=== PATIENT | male | born 1975 | race Caucasian/White ===

== ENCOUNTER 2016-07-28 13:05 | Outpatient (CLI) | payer OTHER | END 2016-07-28 13:06 | disposition home or self-care (01) | LOC: CAR 13:05 | PROVIDERS: ATTEND Psychiatry & Neurology Sleep Medicine | DX: G47.33 Obstructive sleep apnea (adult) (pediatric) (principal) | CPT/HCPCS: 95811 ==

== ENCOUNTER 2017-08-09 08:28 | Outpatient (RCR) ==
--- NOTE | 2017-08-09 11:17 | RS.OTEVAL ---
Subjective Date of Note: 08/09/17 Visit #: 1 Date of Evaluation: 08/09/17 Payer Source: MEDICARE Date of Onset/Injury/Change in Status: 07/11/17 Treatment Diagnosis: M75.41 Impingement syndrome Treatment Side (optional): Right *Precautions: Uses a cane, HTN. Prior Level of Function.....Patient was independent with: ADL's, Self Care, Work /Vocation, Caregiving, Ambulation/Mobility, Community Integration/Access History of Condition/Mechanism of Injury: Pt has been using the cane for 4 years since he had to stop working. Pt reports he has been hurting in the RUE shoulder for a few weeks now. Pt is not a good historian. Pt reports extreme pain with Right shoulder abduction. Level of Function: Pt is not able to lift anything. Pt reports pain all over. Pt has difficulty donning his shirt. Pt quite a bit of difficulty with grooming his hair, quite a bit of difficulty opening a jar, difficulty completing laundry. Pt is not able to use tools. Functional Limitations: Sleep, Self Care, Reaching, Lifting, Carrying Current Complaints/Gains: Pain with shoulder abduction. Pt complains of the bone rubbing on his shoulder when he raises his arm in shoulder abduction. Pt is having a hard time sleeping. He is currently not using his c-pap machine. Pt is needing a different anti-inflammatory medication because naproxen hurt his stomach. Pt has difficulty getting out of the bed. Pt has difficulty picking up his arm and anything with weight on it. Medical History Medical History: Hypertension, Dementia Medical History Comments:: Pt has had back surgery, he is on medication for seizures. Pt has impaired STM, Pt has DDD in back, spinal stenosis, fibromyalgia , spot on his brain they are watching. Pt uses a cane to ambulate. Surgical History Comments:: 2 back surgeries. oral surgery with a tooth removed. Diagnostic Testing/Imaging:: x-ray at [facility] Hx Home Medications: Naproxen, Losartan, Keppra, Oxycodone 10, clorazepate, Patient's Goals: To be able to use his arm without pain. Pain Assessment - Pain Description Pain Description: Burning, Tightness, Radiating, Sharp, Acute Pain Location: Right UE shoulder- runs to his hand like a hot poker. Pain Description: fire like a hot poker Current Pain Intensity: 0 Worst Pain Intensity: 9 Other comments regarding pain:: Pt at rest has pain of 0. When he completes AROM then it is 9/10. Functional Outcome Measures UE Functional Index: 77 - G Codes & Severity Modifier G Codes: Currentis CL = 77% impaired. Goal is CI Source of G Code score: Carrying, moving, and handling Observation - Observation Posture: Normal Handedness: Right - Right Shoulder ROM Right Shoulder Flexion: 127 Right Shoulder Extension: 45 Right Shoulder Abduction: 69 Right Shoulder Internal Rotation: 64 Right Shoulder External Rotation: 67 Right Shoulder ROM Limitations: Soft Tissue Tightness, Pain - Left Shoulder Strength Left Shoulder Flexion: 4+ Good + Left Shoulder Extension: 4+ Good + Left Shoulder Abduction: 4+ Good + - Right Shoulder Strength Right Shoulder Flexion: 3- Fair- Right Shoulder Extension: 3- Fair- Right Shoulder Abduction: 3- Fair- Right Shoulder Adduction: 3- Fair- Right Shoulder External Rotation: 3- Fair- Right Shoulder Internal Rotation: 3- Fair- - Special Tests Shoulder Miramontes-Singh Impingement Test: Positive Right Elbow ROM: Bilaterally WFL's Elbow Muscle Strength: Bilaterally WFL's Wrist ROM: Bilaterally WFL's Wrist Muscle Strength: Bilaterally WFL's Palpation Palpation Findings: Tenderness, Trigger Point Sensation Right Upper Extremity: Impaired Left Upper Extremity: Impaired Sensation Description: Pain Modalities - Treatment Modality: Ultrasound Parameters/Method Applied: .4 w/cm2 for 8 minutes to decrease pain and inflammation. Treatment Area: RUE shouler Patient Position: Sitting - Treatment Modality: Electrical Stim Unattended Parameters/Method Applied: hi volt to decrease pain. Treatment Area: Right UE shoulder Patient Position: Sitting Interventions - Exercise/Activities Exercise/Activities/Manual Therapy: Manual therapy to subscapularis, infraspinatus, supraspinatus. Distraction of humerus from the shoulder for 5 seconds to increase the space in the shoulder. HOME EXERCISE PROGRAM: ice to right shoulder, medication for inflammation. - Charges Timed Code Treatment Minutes: 28 Total Treatment Time: 60 Procedures billed for this date of service:: ISAEL Peñaloza x 2 EVALUATION COMPLEXITY LEVEL: HISTORY: Medium, EXAM OF BODY SYSTEMS: Medium, CLINICAL DECISION MAKING: Medium Assessment Assessment: Pt has limited AROM of RUE shoulder and increased pain with AROM of RUE. Pt has limited functional use for self care and for carrying moving and handling. Pt has difficulty sleeping. Pt reminded to use his c-Pap machine. Rehab Potential: Good Problems/Comments: Pt has increased pain with shoulder flexion, abduction, and horizontal abduction. 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 Short Term Goals Goal #1: Pt pain to decrease to 2/10 with AROM of RUE. Goal to be met by: 08/23/17 Goal #2: Pt to increase shoulder abduction to 90 deg. Goal to be met by: 08/23/17 Goal #3: Pt to increase strength of RUE to 4/5. Goal to be met by: 08/23/17 Goal #4: Pt to increase RUE shoulder flexion to 140 deg. Goal to be met by: 10/10/17 Jail Goals Goal #1: Pt pain to decrease to 0-1/10 with AROM of RUE. Goal to be met by: 10/10/17 Goal #2: Pt to increase shoulder abduction to 115 deg. Goal to be met by: 10/10/17 Goal #3: Pt to increase strength of RUE to 4+/5 to increase reaching. Goal to be met by: 10/10/17 Goal #4: Pt to increase RUE shoulder flexion to 155 deg. Goal to be met by: 10/10/17 Plan - Treatment to be provided Procedures: Therapeutic Exercises, Therapeutic Activity, Neuromuscular Rehab, Manual Therapy, Patient Education Modalities: Electrical Stimulation, Ultrasound/Phonophoresis, Cryotherapy - Treatment Plan Frequency: 2 X week Duration: 8 weeks ORDER # VISITS AND/OR THROUGH DATE: 10/10/17 - Treatment Code (1) Muscle weakness (generalized) Code(s): M62.81 - MUSCLE WEAKNESS (GENERALIZED) Comments: M62.81 muscle weakness in RUE (2) Pain in right shoulder Code(s): M25.511 - PAIN IN RIGHT SHOULDER Qualifiers: Chronicity: acute Qualified Code(s): M25.511 - Pain in right shoulder Comments: Pain in right shoulder (3) Stiffness of right shoulder, not elsewhere classified Code(s): M25.611 - STIFFNESS OF RIGHT SHOULDER, NOT ELSEWHERE CLASSIFIED Comments: Stiffness of RUE shoulder (4) Decreased abduction of right shoulder joint Code(s): M25.611 - STIFFNESS OF RIGHT SHOULDER, NOT ELSEWHERE CLASSIFIED Comments: M25.611 Decreased shoulder abduction
== END 2017-08-10 23:59 | disposition short-term general hospital (02) ==
PROVIDERS: ATTEND Orthopaedic Surgery
DX: M75.41 Impingement syndrome of right shoulder (principal)

== ENCOUNTER 2017-08-29 15:00 | Outpatient (RCR) ==
--- NOTE | 2017-08-14 16:41 | RS.OTDNOTE ---
Subjective Date of Note: 08/14/17 Visit #: 3 Date of Evaluation: 08/09/17 Payer Source: MEDICARE Treatment Diagnosis: M75.41 Impingement syndrome *Precautions: Uses a cane, HTN. Current Complaints/Gains: Pain in the posterior deltoid and in the biceps brachii. Pt reported that following distraction of the LUE that his arm was numb for a day and then the tip of the ring digit felt like fire balls were shooting out of his finger. Pain Assessment - Pain Description Pain Description: Burning, Tightness, Aching Pain Location: Right UE shoulder- runs to his hand like a hot poker. Pain Description: fire like a hot poker Current Pain Intensity: 6 Worst Pain Intensity: 9 Other comments regarding pain:: Patient's pain decreased to 0 following treatment. Modalities - Treatment Modality: Ultrasound Parameters/Method Applied: .4 w/cm2 to RUE biceps brachii area to decrease the pain and tightness of the muscle. Treatment Area: RUE biceps brachii Patient Position: Sitting Interventions - Exercise/Activities Exercise/Activities/Manual Therapy: Manual therapy to teres major, teres minor, supraspinatus and anterior deltoid area near biceps brachii. Pt completed RUE shoulder ABD x 5 reps, RUE shoulder extension x 5 reps, and RUE shoulder extension to reach in his pocket x 5 reps. HOME EXERCISE PROGRAM: ice to right shoulder, medication for inflammation. - Charges Timed Code Treatment Minutes: 54 Total Treatment Time: 54 Procedures billed for this date of service:: MT x 2, US, EX Assessment Assessment: Pt had taut muscle in the biceps brachii area and teres major and teres minor. Pt responded well to therapy of MT and US to decrease pain. Problems/Comments: Pain is decreasing. Patient demonstrates compliance with HEP?: Yes Short Term Goals Goal #1: Pt pain to decrease to 2/10 with AROM of RUE. Goal to be met by: 08/23/17 Progress towards goal: Progressing Goal #2: Pt to increase shoulder abduction to 90 deg. Goal to be met by: 08/23/17 Progress towards goal: Progressing Goal #3: Pt to increase strength of RUE to 4/5. Goal to be met by: 08/23/17 Goal #4: Pt to increase RUE shoulder flexion to 140 deg. Goal to be met by: 10/10/17 Penitentiary Goals Goal #1: Pt pain to decrease to 0-1/10 with AROM of RUE. Goal to be met by: 10/10/17 Progress towards goal: Progressing Goal #2: Pt to increase shoulder abduction to 115 deg. Goal to be met by: 10/10/17 Progress towards goal: Progressing Goal #3: Pt to increase strength of RUE to 4+/5 to increase reaching. Goal to be met by: 10/10/17 Progress towards goal: Progressing Goal #4: Pt to increase RUE shoulder flexion to 155 deg. Goal to be met by: 10/10/17 Progress towards goal: Progressing Plan PLAN OF CARE EXPIRES ON:: 10/10/17 ORDER # VISITS AND/OR THROUGH DATE: 10/10/17 PLAN: To decrease pain in RUE shoulder and then strengthen.
--- NOTE | 2017-08-15 08:23 | RS.OTDNOTE ---
Subjective Date of Note: 08/11/17 Visit #: 2 Date of Evaluation: 08/09/17 Payer Source: MEDICARE Treatment Diagnosis: M75.41 Impingement syndrome *Precautions: Uses a cane, HTN. Current Complaints/Gains: Pt with c/o numbness following therapy. States shoulder to fingertips numbess but no tingling. States ROM improvement following last tx session. States he has not been applying CP but agrees to utilize x 3/day for inflammation. Pain Assessment - Pain Description Pain Location: Right UE shoulder- runs to his hand like a hot poker. Pain Description: fire like a hot poker Current Pain Intensity: 3 Worst Pain Intensity: 7 Modalities - Treatment Modality: Electrical Stim Unattended Parameters/Method Applied: Hi-volt to pt tolerance. Cross current x 4 pads. Treatment Area: shoulder - Hot Pack/Cryotherapy Treatment: Cryotherapy Comments:: CP x 20 mins Interventions - Exercise/Activities Exercise/Activities/Manual Therapy: Manual therapy to subscapularis, infraspinatus, supraspinatus. Distraction of humerus from the shoulder for 5 seconds to increase the space in the shoulder. MT performed along with PROM ABD /ADD and flexion/extension. HOME EXERCISE PROGRAM: ice to right shoulder, medication for inflammation. - Other Treatment/Services Treatment Details: AROM WFL following tx - Charges Timed Code Treatment Minutes: 26 Total Treatment Time: 48 Procedures billed for this date of service:: CP ESTIM EX Assessment Patient demonstrates compliance with HEP?: Yes Short Term Goals Goal #1: Pt pain to decrease to 2/10 with AROM of RUE. Goal to be met by: 08/23/17 Progress towards goal: Progressing Goal #2: Pt to increase shoulder abduction to 90 deg. Goal to be met by: 08/23/17 Progress towards goal: Partially Met Goal #3: Pt to increase strength of RUE to 4/5. Goal to be met by: 08/23/17 Progress towards goal: Partially Met Goal #4: Pt to increase RUE shoulder flexion to 140 deg. Goal to be met by: 10/10/17 Progress towards goal: Partially Met Intermediate Goals Goal #1: Pt pain to decrease to 0-1/10 with AROM of RUE. Goal to be met by: 10/10/17 Progress towards goal: Progressing Goal #2: Pt to increase shoulder abduction to 115 deg. Goal to be met by: 10/10/17 Progress towards goal: Progressing Goal #3: Pt to increase strength of RUE to 4+/5 to increase reaching. Goal to be met by: 10/10/17 Progress towards goal: Progressing Goal #4: Pt to increase RUE shoulder flexion to 155 deg. Goal to be met by: 10/10/17 Progress towards goal: Progressing Plan PLAN OF CARE EXPIRES ON:: 10/10/17 ORDER # VISITS AND/OR THROUGH DATE: 10/10/17 PLAN: Cont per POC to max fx strength/ROM with decreased c/o pain.
--- NOTE | 2017-08-18 08:48 | RS.OTDNOTE ---
Subjective Date of Note: 08/16/17 Visit #: 4 Date of Evaluation: 08/09/17 Payer Source: MEDICARE Treatment Diagnosis: M75.41 Impingement syndrome *Precautions: Uses a cane, HTN. Current Complaints/Gains: Pt states less c/o numbness in UE and voices/demo increased AROM with flexion/abduction but pain is limiting shoulder extension. Pain Assessment - Pain Description Pain Description: Burning, Tightness, Aching Pain Location: Right UE shoulder- runs to his hand like a hot poker. Pain Description: fire like a hot poker Modalities - Treatment Modality: Ultrasound Parameters/Method Applied: .04w/cm2 to biceps brachi x 10 mins Patient Position: Sitting - Hot Pack/Cryotherapy Treatment: Cryotherapy (CP X10 mins) Interventions - Exercise/Activities Exercise/Activities/Manual Therapy: Manual therapy to subscapularis, infraspinatus, supraspinatus. MT performed along with PROM ABD/ADD and flexion with limited shoulder extension performed 2* c/o pain HOME EXERCISE PROGRAM: ice to right shoulder, medication for inflammation. - Objective Findings Objective Findings:: AROM increasing - Charges Timed Code Treatment Minutes: 42 Total Treatment Time: 52 Procedures billed for this date of service:: CP US MT Assessment Patient Education: Education of diagnosis, Body/Joint mechanics, Home Exercise Program, Home Safety, Activity Modification, Education of Plan of Care Patient demonstrates compliance with HEP?: Yes Short Term Goals Goal #1: Pt pain to decrease to 2/10 with AROM of RUE. Goal to be met by: 08/23/17 Progress towards goal: Progressing Goal #2: Pt to increase shoulder abduction to 90 deg. Goal to be met by: 08/23/17 Progress towards goal: Partially Met Comments: supine position Goal #3: Pt to increase strength of RUE to 4/5. Goal to be met by: 08/23/17 Progress towards goal: Partially Met Goal #4: Pt to increase RUE shoulder flexion to 140 deg. Goal to be met by: 10/10/17 Progress towards goal: Partially Met Manager Advertising Goals Goal #1: Pt pain to decrease to 0-1/10 with AROM of RUE. Goal to be met by: 10/10/17 Progress towards goal: Progressing Goal #2: Pt to increase shoulder abduction to 115 deg. Goal to be met by: 10/10/17 Progress towards goal: Progressing Goal #3: Pt to increase strength of RUE to 4+/5 to increase reaching. Goal to be met by: 10/10/17 Progress towards goal: Progressing Goal #4: Pt to increase RUE shoulder flexion to 155 deg. Goal to be met by: 10/10/17 Progress towards goal: Progressing Plan PLAN OF CARE EXPIRES ON:: 10/10/17 ORDER # VISITS AND/OR THROUGH DATE: 10/10/17 PLAN: Cont per POC to max fx I, strength, and ROM
--- NOTE | 2017-08-21 15:22 | RS.OTCXNS ---
OT Case Note Date of Scheduled Appointment: 08/21/17 Type: Cancel (Pt sick)
--- NOTE | 2017-08-24 09:01 | RS.OTDNOTE ---
Subjective Date of Note: 08/23/17 Visit #: 5 Date of Evaluation: 08/09/17 Payer Source: MEDICARE Treatment Diagnosis: M75.41 Impingement syndrome *Precautions: Uses a cane, HTN. Current Complaints/Gains: Pt states therapy has been helping with his motion and pain, even stating pain free at times. States he was washing his hands on Monday night when he had a sharp and loud pop in his shoulder. States increased pain and numbness in his ring and middle digit. States he had a MD appointment last night and was told to continue with current therapy. Pain Assessment - Pain Description Pain Description: Burning, Tightness, Aching Pain Location: Right UE shoulder- runs to his hand like a hot poker. Pain Description: fire like a hot poker Current Pain Intensity: 4-5 Worst Pain Intensity: 10 Other comments regarding pain:: Increased pain with all shoulder and elbow movement. Slight increase with wrist ROM. Modalities - Treatment Modality: Ultrasound Parameters/Method Applied: .04w/cm2 x 7 mins each to trapezius and and along deltoids/bicep each Patient Position: Sitting - Hot Pack/Cryotherapy Treatment: Cryotherapy Comments:: CP applied to shoulder with ice massage/MT to bicep/tricep and AC joint Interventions - Exercise/Activities Exercise/Activities/Manual Therapy: Manual therapy to subscapularis, infraspinatus, supraspinatus. MT performed along with PROM ABD/ADD and flexion with limited shoulder extension performed 2* c/o pain. PROM within pain increase limits. HOME EXERCISE PROGRAM: ice to right shoulder, medication for inflammation. - Objective Findings Objective Findings:: Pain increased with PROM and palpation. - Charges Timed Code Treatment Minutes: 48 Total Treatment Time: 50 Procedures billed for this date of service:: MT US CP Assessment Patient Education: Education of diagnosis, Body/Joint mechanics, Home Exercise Program, Home Safety, Activity Modification, Education of Plan of Care Patient demonstrates compliance with HEP?: Yes Short Term Goals Goal #1: Pt pain to decrease to 2/10 with AROM of RUE. Goal to be met by: 08/23/17 Progress towards goal: Regressing Goal #2: Pt to increase shoulder abduction to 90 deg. Goal to be met by: 08/23/17 Progress towards goal: Regressing Goal #3: Pt to increase strength of RUE to 4/5. Goal to be met by: 08/23/17 Progress towards goal: Regressing Goal #4: Pt to increase RUE shoulder flexion to 140 deg. Goal to be met by: 10/10/17 Progress towards goal: Regressing Customer Counter Representative Goals Goal #1: Pt pain to decrease to 0-1/10 with AROM of RUE. Goal to be met by: 10/10/17 Progress towards goal: Regressing Goal #2: Pt to increase shoulder abduction to 115 deg. Goal to be met by: 10/10/17 Progress towards goal: Regressing Goal #3: Pt to increase strength of RUE to 4+/5 to increase reaching. Goal to be met by: 10/10/17 Progress towards goal: Regressing Goal #4: Pt to increase RUE shoulder flexion to 155 deg. Goal to be met by: 10/10/17 Progress towards goal: Regressing Plan PLAN OF CARE EXPIRES ON:: 10/10/17 ORDER # VISITS AND/OR THROUGH DATE: 10/10/17 PLAN: Pt ed to contact MD if pain remains or increases. Pt instructed to apply CP x 3+ times daily and to rest UE. Pt instructed to cont with therapy on Monday if improvement noted.
--- NOTE | 2017-08-28 09:29 | RS.OTDNOTE ---
Subjective Date of Note: 08/25/17 Visit #: 6 Date of Evaluation: 08/09/17 Payer Source: MEDICARE Treatment Diagnosis: M75.41 Impingement syndrome *Precautions: Uses a cane, HTN. Current Complaints/Gains: Pt states his UE felt better upon leaving therapy and it lasted x 1+ day. States decreased c/o numbness this date. Pain Assessment - Pain Description Pain Description: Burning, Tightness, Aching Pain Location: Right UE shoulder- runs to his hand like a hot poker. Pain Description: fire like a hot poker Current Pain Intensity: 2-3 Modalities - Treatment Modality: Ultrasound Parameters/Method Applied: .04/wcm2 x 10 mins Patient Position: Sitting - Hot Pack/Cryotherapy Treatment: Cryotherapy (CP following therapy) Interventions - Exercise/Activities Exercise/Activities/Manual Therapy: Manual therapy to subscapularis, infraspinatus, supraspinatus. MT performed along with PROM ABD/ADD and flexion with limited shoulder extension performed 2* c/o pain. PROM within pain increase limits. HOME EXERCISE PROGRAM: ice to right shoulder, medication for inflammation. - Objective Findings Objective Findings:: Pain increased with PROM and palpation. - Charges Timed Code Treatment Minutes: 49 Total Treatment Time: 49 Procedures billed for this date of service:: CP US EX Assessment Patient Education: Education of diagnosis, Body/Joint mechanics, Home Exercise Program, Home Safety, Activity Modification, Education of Plan of Care Patient demonstrates compliance with HEP?: Yes Short Term Goals Goal #1: Pt pain to decrease to 2/10 with AROM of RUE. Goal to be met by: 08/23/17 Progress towards goal: Progressing Goal #2: Pt to increase shoulder abduction to 90 deg. Goal to be met by: 08/23/17 Progress towards goal: Progressing Goal #3: Pt to increase strength of RUE to 4/5. Goal to be met by: 08/23/17 Progress towards goal: Progressing Goal #4: Pt to increase RUE shoulder flexion to 140 deg. Goal to be met by: 10/10/17 Progress towards goal: Regressing Engagement Engineer Goals Goal #1: Pt pain to decrease to 0-1/10 with AROM of RUE. Goal to be met by: 10/10/17 Progress towards goal: Progressing Goal #2: Pt to increase shoulder abduction to 115 deg. Goal to be met by: 10/10/17 Progress towards goal: Progressing Goal #3: Pt to increase strength of RUE to 4+/5 to increase reaching. Goal to be met by: 10/10/17 Progress towards goal: Progressing Goal #4: Pt to increase RUE shoulder flexion to 155 deg. Goal to be met by: 10/10/17 Progress towards goal: Progressing Plan PLAN OF CARE EXPIRES ON:: 10/10/17 ORDER # VISITS AND/OR THROUGH DATE: 10/10/17 PLAN: Cont per POC
--- NOTE | 2017-08-29 15:15 | RS.OTCXNS ---
OT Case Note Date of Scheduled Appointment: 08/29/17 Type: Cancel (Therapist cx'd pt 2* increased c/o pain/numbness. Pt states he went to walk in clinic 08/28/18 2* high pain and is scheduled for appointment tomorrow 08/30/17 with Todd JORDAN. Pt to call therapy following MD appointment tomorrow.)
--- NOTE | 2017-08-30 09:03 | RS.OTCNOTE ---
OT Case Note Date of Note: 08/30/17 Title: HOLD OT Note: Pt phoned into therapy following MD appointment this date. Pt placed on hold per MD awaiting MRI 2* increased c/o pain following "pop" while at home washing hands last wk.
== END 2017-09-09 23:59 ==
PROVIDERS: ATTEND Orthopaedic Surgery
DX: M75.41 Impingement syndrome of right shoulder (principal)

== ENCOUNTER 2018-04-11 15:00 | Outpatient (RCR) ==
--- NOTE | 2018-03-14 14:15 | RS.OTEVAL ---
Subjective Date of Note: 03/14/18 Visit #: 1 Number of visits approved by Insurance: [id number] Date of Evaluation: 03/14/18 Payer Source: MEDICARE Date of Onset/Injury/Change in Status: 07/11/17 Treatment Diagnosis: M75.111 Incomplete RCT with Rupture of Right Shoulder Treatment Side (optional): Right *Precautions: Uses a cane, HTN. Prior Level of Function.....Patient was independent with: ADL's, Self Care, Work /Vocation, Caregiving, Ambulation/Mobility, Community Integration/Access History of Condition/Mechanism of Injury: Pt reports he had surgery in [place] with Dr. Sandy Doll on February 07, 2018. Pt has been in a sling since surgery and was told to wear the sling until March 21, 2018. Pt has just now started taking the sling off for a shower. Pt has been sleeping in a recliner since the surgery. Dr. Alanis report that patient had an incomplete Rotator cuff tear and a rupture of the Right shoulder. Level of Function: Pt is not able to lift anything. Pt reports 5/10 pain all over right shoulder. Pt has difficulty donning his shirt but is able to independently. Pt is minimal assistance for donning his splint. Functional Limitations: Sleep, Self Care, Reaching, Lifting, Carrying Current Complaints/Gains: Shoulder pain. Pt reports he is told not to hold more than a full spoon with the RUE hand. Medical History Medical History: Hypertension, Dementia Medical History Comments:: Pt has had back surgery, he is on medication for seizures. Pt has impaired STM, Pt has DDD in back, spinal stenosis, fibromyalgia , spot on his brain they are watching. Pt uses a cane to ambulate. Surgical History Comments:: 2 back surgeries. oral surgery with a tooth removed. Right incomplete Rotator cuff repair/ruptured Right shoulder Diagnostic Testing/Imaging:: x-ray at [facility] Hx Home Medications: Naproxen, Losartan, Keppra, Oxycodone 10, clorazepate, Patient's Goals: To be able to use his arm without pain. Pain Assessment - Pain Description Pain Description: Burning, Tightness, Sharp, Acute Pain Location: Right UE shoulder Pain Description: fire like a hot poker Current Pain Intensity: 5 Worst Pain Intensity: 9 Functional Outcome Measures UE Functional Index: 7 - G Codes & Severity Modifier G Codes: Current is CM at 92.5% impaired. Goal is CH Source of G Code score: Carry, moving, and handling objects. Observation - Observation Posture: Forward Head Handedness: Right Additional Comments: Pt had surgery to repair. Wrist ROM: Bilaterally WFL's Wrist Muscle Strength: Left WFL's Palpation Palpation Findings: Tenderness, Muscle Guarding Sensation Right Upper Extremity: Intact/Normal Left Upper Extremity: Intact/Normal Modalities - Hot Pack/Cryotherapy Treatment: Cryotherapy Interventions - Exercise/Activities Exercise/Activities/Manual Therapy: Pt placed in supine and PROM was completed explaining every motion to decrease the anxiety of the patient. Pt tolerated PROM of RUE shoulder in shoulder flexion, abduction, INT. Rot., Ext. Rot., shoulder extension. PROM was completed to the point of pain. Some motions were not full ROM. HOME EXERCISE PROGRAM: ice to right shoulder, medication for inflammation. - Objective Findings Objective Findings:: Pain increased with PROM and palpation. - Charges Timed Code Treatment Minutes: 60 Total Treatment Time: 60 Procedures billed for this date of service:: Evaluation- Medium, EX, CP EVALUATION COMPLEXITY LEVEL: HISTORY: Medium, EXAM OF BODY SYSTEMS: Medium, CLINICAL DECISION MAKING: Medium Assessment Assessment: Pt has limited ROM at this time due to edema and being in a sling following surgery and pain. Patient Education: Education of diagnosis, Education of Plan of Care Rehab Potential: Good Problems/Comments: Pt has pain with motion. Pt has mild edema of the RUE shoulder. Short Term Goals Goal #1: Pt pain to decrease to 2/10 with AROM of RUE. Goal to be met by: 03/28/18 Goal #2: Pt to be independent with Home exercise program. Goal to be met by: 03/28/18 Goal #3: Pt to increase strength of RUE to 3-/5. Goal to be met by: 03/28/18 Goal #4: Pt to increase RUE shoulder flexion to 90 deg. 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 Goal to be met by: 04/27/18 Goal #2: Pt to increase shoulder abduction to 115 deg. Goal to be met by: 04/27/18 Goal #3: Pt to increase strength of RUE to 4+/5 to increase reaching. Goal to be met by: 04/27/18 Goal #4: Pt to increase RUE shoulder flexion to 155 deg. Goal to be met by: 04/27/18 Plan - Treatment to be provided Procedures: Therapeutic Exercises, Therapeutic Activity, Neuromuscular Rehab, Manual Therapy, Patient Education Modalities: Electrical Stimulation, Ultrasound/Phonophoresis, Class IV Laser, Cryotherapy - Treatment Plan Frequency: 2 X week Duration: 6 weeks Dates of [facility] Goals: 04/27/18 Expiration date of current Insurance Approval:: 04/27/18 - Treatment Code (1) Muscle weakness (generalized) Code(s): M62.81 - MUSCLE WEAKNESS (GENERALIZED) Comments: M62.81 Muscle Weakness (2) Pain in right shoulder Code(s): M25.511 - PAIN IN RIGHT SHOULDER Qualifiers: Chronicity: acute Qualified Code(s): M25.511 - Pain in right shoulder Comments: M25.5111 RUE shoulder pain (3) Stiffness of right shoulder, not elsewhere classified Code(s): M25.611 - STIFFNESS OF RIGHT SHOULDER, NOT ELSEWHERE CLASSIFIED Comments: M25.611 Stiffness of RUE shoulder
--- NOTE | 2018-03-19 16:15 | RS.OTDNOTE ---
Subjective Date of Note: 03/15/18 Visit #: 2 Number of visits approved by Insurance: [id number] Date of Evaluation: 03/14/18 Payer Source: MEDICARE Treatment Diagnosis: M75.111 Incomplete RCT with Rupture of Right Shoulder *Precautions: Uses a cane, HTN. Current Complaints/Gains: Pt and states pt has a cryocuff machine at home but pt has not been utilizing it. States good understanding of healing of UE and performing codman's ex's. Pain Assessment - Pain Description Pain Description: Burning, Tightness, Sharp, Acute Pain Location: Right UE shoulder Pain Description: fire like a hot poker Current Pain Intensity: 3-4 Worst Pain Intensity: 12 Modalities - Treatment Modality: Ultrasound Parameters/Method Applied: 1.5w/cm2 x 10 mins to anterior shoulder Patient Position: Sitting - Hot Pack/Cryotherapy Treatment: Cryotherapy Comments:: CP x 15 mins following tx with pt and spouse ed for utilizing CP or cryocuff at home x several times daily. Interventions - Exercise/Activities Exercise/Activities/Manual Therapy: Pt in supine positon for PROM shoulder flexion, extension, IR/ER to pt tolerance. Pt ed on and completed AROM of scapula squeezes and elevation along with continued ed of codman's exercise. HOME EXERCISE PROGRAM: ice to right shoulder, medication for inflammation, AROM shoulder elevation/retraction and codman's exercise. - Objective Findings Objective Findings:: Pain increased with PROM and palpation. - Charges Timed Code Treatment Minutes: 48 Total Treatment Time: 62 Procedures billed for this date of service:: CP US MT2 Assessment Patient Education: Education of diagnosis, Body/Joint mechanics, Home Exercise Program, Home Safety, Activity Modification, Education of Plan of Care Problems/Comments: Pt has not been utilizing CP. Instructed on use and inflamation. Short Term Goals Goal #1: Pt pain to decrease to 2/10 with AROM of RUE. Goal to be met by: 03/28/18 Progress towards goal: Progressing Goal #2: Pt to be independent with Home exercise program. Goal to be met by: 03/28/18 Progress towards goal: Progressing Goal #3: Pt to increase strength of RUE to 3-/5. Goal to be met by: 03/28/18 Progress towards goal: Progressing Goal #4: Pt to increase RUE shoulder flexion to 90 deg. Goal to be met by: 03/28/18 Progress towards goal: Progressing Penitentiary Goals Goal #1: Pt pain to decrease to 0-1/10 with AROM of RUE. Goal to be met by: 04/27/18 Progress towards goal: Progressing Goal #2: Pt to increase shoulder abduction to 115 deg. Goal to be met by: 04/27/18 Progress towards goal: Progressing Goal #3: Pt to increase strength of RUE to 4+/5 to increase reaching. Goal to be met by: 04/27/18 Progress towards goal: Progressing Goal #4: Pt to increase RUE shoulder flexion to 155 deg. Goal to be met by: 04/27/18 Progress towards goal: Progressing Plan Dates of Penitentiary Goals: 04/27/18 Expiration date of current Insurance Approval:: 04/27/18 PLAN: Pt on wk 5/Phase 1B of RTC protocol. Cont per POC/protocol. Phase II wks 6-10 begins on Mar 21.
--- NOTE | 2018-03-20 08:42 | RS.OTDNOTE ---
Subjective Date of Note: 03/19/18 Visit #: 3 Number of visits approved by Insurance: [id number] Date of Evaluation: 03/14/18 Payer Source: MEDICARE Treatment Diagnosis: M75.111 Incomplete RCT with Rupture of Right Shoulder *Precautions: Uses a cane, HTN. Current Complaints/Gains: Pt states he has been performing codman's ex but has not been utilizing his cryocuff/ice pack. States increased c/o pain at end range of all shoulder motion but states ER is the worst. Pt shown RTC PROTOCOL from MD office and pillow was removed with pt ed on removal of sling this wk 2* protocol and what pt was instructed on his last visit. pt was also given hand- outs of scapula/trap AROM and isometric ex's x 4 for HEP. Pain Assessment - Pain Description Pain Description: Burning, Tightness, Sharp, Acute Pain Location: Right UE shoulder Pain Description: fire like a hot poker Current Pain Intensity: 4-5 Worst Pain Intensity: 8 Modalities - Treatment Modality: Electrical Stim Unattended Parameters/Method Applied: Hi-volt x 20 mins to pt tolerance with CP applied during Treatment Area: Shoulder Patient Position: Sitting - Hot Pack/Cryotherapy Treatment: Cryotherapy Comments:: CP x 20 mins Interventions - Exercise/Activities Exercise/Activities/Manual Therapy: Pt in supine positon for PROM shoulder flexion, extension, IR/ER to pt tolerance. Pt ed on and completed AROM of scapula squeezes and elevation along with continued ed of codman's exercise. Pt instructed and performed isometric ex's, 10/1x4 and finger ladder x3. HOME EXERCISE PROGRAM: ice to right shoulder, medication for inflammation, AROM shoulder elevation/retraction and codman's exercise. - Objective Findings Objective Findings:: Pain increased with PROM and palpation. - Charges Timed Code Treatment Minutes: 39 Total Treatment Time: 61 Procedures billed for this date of service:: ESTIM EX2 CP Assessment Patient Education: Education of diagnosis, Body/Joint mechanics, Home Exercise Program, Home Safety, Activity Modification, Education of Plan of Care Problems/Comments: Pillow removed from brace with pt ed on sling removal this wk Patient demonstrates compliance with HEP?: Yes Short Term Goals Goal #1: Pt pain to decrease to 2/10 with AROM of RUE. Goal to be met by: 03/28/18 Progress towards goal: Progressing Goal #2: Pt to be independent with Home exercise program. Goal to be met by: 03/28/18 Progress towards goal: Progressing Goal #3: Pt to increase strength of RUE to 3-/5. Goal to be met by: 03/28/18 Progress towards goal: Progressing Goal #4: Pt to increase RUE shoulder flexion to 90 deg. 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 Goal to be met by: 04/27/18 Progress towards goal: Progressing Goal #2: Pt to increase shoulder abduction to 115 deg. Goal to be met by: 04/27/18 Progress towards goal: Progressing Goal #3: Pt to increase strength of RUE to 4+/5 to increase reaching. Goal to be met by: 04/27/18 Progress towards goal: Progressing Goal #4: Pt to increase RUE shoulder flexion to 155 deg. Goal to be met by: 04/27/18 Progress towards goal: Progressing Plan Dates of Correction Goals: 04/27/18 Expiration date of current Insurance Approval:: 04/27/18 PLAN: Continue per POC to max functional AROM/strength in (R) UE.
--- NOTE | 2018-03-23 08:29 | RS.OTDNOTE ---
Subjective Date of Note: 03/22/18 Visit #: 4 Number of visits approved by Insurance: 18 Date of Evaluation: 03/14/18 Payer Source: MEDICARE Treatment Diagnosis: M75.111 Incomplete RCT with Rupture of Right Shoulder *Precautions: Uses a cane, HTN. Current Complaints/Gains: Pt states UE felt better for about 30 mins following therapy but pain steadily increased to 10/10. States he has been utilizing his cryocuff and taking pain medicine. States that yesterday he removed his sling and UE has felf better not being held in same positon. Pt ed on continued HEP and need for more therapy. Pt agreed to attending therapy 3x/wk now vs 2. Pain Assessment - Pain Description Pain Description: Burning, Tightness, Sharp, Acute Pain Location: Right UE shoulder Pain Description: fire like a hot poker Current Pain Intensity: 3 Worst Pain Intensity: 10 Modalities - Treatment Modality: Ultrasound Parameters/Method Applied: 1.5w/cm2 x 15 mins total. Treatment Area: anterior shoulder/deltoids Patient Position: Sitting - Hot Pack/Cryotherapy Treatment: Cryotherapy (CP x10 mins following therapy) Interventions - Exercise/Activities Exercise/Activities/Manual Therapy: manual therapy to shoulder, scapula, and deltoids. Pt performed codman's ex x 4 directions. Continued education on HEP and performed AROM shoulder shrugs/retraction. HOME EXERCISE PROGRAM: ice to right shoulder, medication for inflammation, AROM shoulder elevation/retraction and codman's exercise. - Objective Findings Objective Findings:: Pain increased with PROM and palpation. - Charges Timed Code Treatment Minutes: 41 Total Treatment Time: 50 Procedures billed for this date of service:: CP MT Assessment Patient Education: Education of diagnosis, Body/Joint mechanics, Home Exercise Program, Home Safety, Activity Modification, Education of Plan of Care Patient demonstrates compliance with HEP?: Yes Short Term Goals Goal #1: Pt pain to decrease to 2/10 with AROM of RUE. Goal to be met by: 03/28/18 Progress towards goal: Regressing Goal #2: Pt to be independent with Home exercise program. Goal to be met by: 03/28/18 Progress towards goal: Progressing Goal #3: Pt to increase strength of RUE to 3-/5. Goal to be met by: 03/28/18 Progress towards goal: Progressing Goal #4: Pt to increase RUE shoulder flexion to 90 deg. 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 Goal to be met by: 04/27/18 Progress towards goal: Regressing Goal #2: Pt to increase shoulder abduction to 115 deg. Goal to be met by: 04/27/18 Progress towards goal: Progressing Goal #3: Pt to increase strength of RUE to 4+/5 to increase reaching. Goal to be met by: 04/27/18 Progress towards goal: Progressing Goal #4: Pt to increase RUE shoulder flexion to 155 deg. Goal to be met by: 04/27/18 Progress towards goal: Progressing Plan Dates of Stenotype Operator Goals: 04/27/18 Expiration date of current Insurance Approval:: 04/27/18 PLAN: Pt agreeable to attending therapy 3x/wk. OTR to change POC to 3x/wk. MD order was signed for 2-3 x/wk.
--- NOTE | 2018-03-23 13:53 | RS.OTCNOTE ---
OT Case Note Date of Note: 03/23/18 Title: # of visits a week Note: Patient has learned that he really needs to come to therapy 3 times a week instead of 2 times a week. Pt is now willing to come to therapy 3 x a week even though at evaluation day he was encouraged to come 3 times. Number of visits approved by Insurance: 18 Expiration date of current Insurance Approval:: 04/27/18
--- NOTE | 2018-03-23 16:24 | RS.OTDNOTE ---
Subjective Date of Note: 03/23/18 Visit #: 5 Number of visits approved by Insurance: 18 Date of Evaluation: 03/14/18 Payer Source: MEDICARE Treatment Diagnosis: M75.111 Incomplete RCT with Rupture of Right Shoulder *Precautions: Uses a cane, HTN. Current Complaints/Gains: Pt states UE feels better. States increased c/o pain with PROM at end range in supine position. States he has been utilizing his cryo therapy unit and will use it this wknd. States he will attend therapy 3/ wk and agrees to Monday, , Mon schedule. Pain Assessment - Pain Description Pain Description: Burning, Tightness, Sharp, Acute Pain Location: Right UE shoulder Pain Description: fire like a hot poker Current Pain Intensity: 3 Worst Pain Intensity: 9 Modalities - Treatment Modality: Ultrasound Parameters/Method Applied: 1.5w/cm2 x 12 mins Treatment Area: anterior shoulder/middle deltoid Patient Position: Sitting - Hot Pack/Cryotherapy Treatment: Hot Pack, Cryotherapy Interventions - Exercise/Activities Exercise/Activities/Manual Therapy: Manual therapy to shoulder, scapula, and deltoids. PROM/gentle stretching in supine position x 20+ mins shoulder flexion/ extension and IR/ER. Pt performed codman's ex x 4 directions. Isometric ex x4,10 /1. UBE x 3 mins. Continued education on HEP and performed AROM shoulder shrugs/retraction. HOME EXERCISE PROGRAM: ice to right shoulder, medication for inflammation, AROM shoulder elevation/retraction and codman's exercise. - Objective Findings Objective Findings:: Pain increased with PROM and palpation. - Charges Timed Code Treatment Minutes: 49 Total Treatment Time: 61 Procedures billed for this date of service:: CP US EX2 Assessment Patient Education: Education of diagnosis, Body/Joint mechanics, Home Exercise Program, Home Safety, Activity Modification, Education of Plan of Care Patient demonstrates compliance with HEP?: Yes Short Term Goals Goal #1: Pt pain to decrease to 2/10 with AROM of RUE. Goal to be met by: 03/28/18 Progress towards goal: Progressing Goal #2: Pt to be independent with Home exercise program. Goal to be met by: 03/28/18 Progress towards goal: Progressing Goal #3: Pt to increase strength of RUE to 3-/5. Goal to be met by: 03/28/18 Progress towards goal: Progressing Goal #4: Pt to increase RUE shoulder flexion to 90 deg. 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 Goal to be met by: 04/27/18 Progress towards goal: Progressing Goal #2: Pt to increase shoulder abduction to 115 deg. Goal to be met by: 04/27/18 Progress towards goal: Progressing Goal #3: Pt to increase strength of RUE to 4+/5 to increase reaching. Goal to be met by: 04/27/18 Progress towards goal: Progressing Goal #4: Pt to increase RUE shoulder flexion to 155 deg. Goal to be met by: 04/27/18 Progress towards goal: Progressing Plan Dates of Group Home Goals: 04/27/18 Expiration date of current Insurance Approval:: 04/27/18 PLAN: Continue per POC to max functional strength and AROM.
--- NOTE | 2018-03-27 08:47 | RS.OTDNOTE ---
Subjective Date of Note: 03/26/18 Visit #: 6 Number of visits approved by Insurance: 18 Date of Evaluation: 03/14/18 Payer Source: MEDICARE Treatment Diagnosis: M75.111 Incomplete RCT with Rupture of Right Shoulder *Precautions: Uses a cane, HTN. Current Complaints/Gains: Pt states, "I can't believe how high up I'm getting my arm today" Pain Assessment - Pain Description Pain Description: Burning, Tightness, Sharp, Dull, Acute Pain Location: Right UE shoulder Current Pain Intensity: 3 Worst Pain Intensity: 8+ Modalities - Treatment Modality: Ultrasound Parameters/Method Applied: 1.5w/cm2 x 12 mins Treatment Area: shoulder Patient Position: Sitting - Hot Pack/Cryotherapy Treatment: Cryotherapy (Following therapy) Interventions - Exercise/Activities Exercise/Activities/Manual Therapy: Manual therapy to shoulder, scapula, and deltoids. PROM/gentle stretching in supine position x 20+ mins shoulder flexion/ extension and IR/ER. AROM and A/AROM performed in supine positon with sc and HEP instruction. Pt performed codman's ex x 4 directions. Isometric ex x4,10/. UBE x 3 mins along with finger ladder x 3 to 141-142* shoulder flexion. Continued education on HEP and performed AROM shoulder shrugs/retraction. HOME EXERCISE PROGRAM: ice to right shoulder, medication for inflammation, AROM shoulder elevation/retraction and codman's exercise. - Objective Findings Objective Findings:: Pain increased with PROM and palpation. - Charges Timed Code Treatment Minutes: 51 Total Treatment Time: 62 Procedures billed for this date of service:: CP US EX2 Assessment Patient Education: Education of diagnosis, Body/Joint mechanics, Home Exercise Program, Home Safety, Activity Modification, Education of Plan of Care Patient demonstrates compliance with HEP?: Yes Short Term Goals Goal #1: Pt pain to decrease to 2/10 with AROM of RUE. Goal to be met by: 03/28/18 Progress towards goal: Progressing Goal #2: Pt to be independent with Home exercise program. Goal to be met by: 03/28/18 Progress towards goal: Progressing Goal #3: Pt to increase strength of RUE to 3-/5. Goal to be met by: 03/28/18 Progress towards goal: Progressing Goal #4: Pt to increase RUE shoulder flexion to 90 deg. 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 Goal to be met by: 04/27/18 Progress towards goal: Progressing Goal #2: Pt to increase shoulder abduction to 115 deg. Goal to be met by: 04/27/18 Progress towards goal: Progressing Goal #3: Pt to increase strength of RUE to 4+/5 to increase reaching. Goal to be met by: 04/27/18 Progress towards goal: Progressing Goal #4: Pt to increase RUE shoulder flexion to 155 deg. Goal to be met by: 04/27/18 Progress towards goal: Progressing Plan Dates of [facility] Goals: 04/27/18 Expiration date of current Insurance Approval:: 04/27/18 PLAN: Continue per POC to max functional UE AROM/strength
--- NOTE | 2018-03-28 16:27 | RS.OTDNOTE ---
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 Current Complaints/Gains: Pt states he has been performing HEP but in sitting/ standing. Pt explained that he would be able to get a bigger stretch in supine positon. Pt also states he likes the jonatan and plans to make/buy one. Pain Assessment - Pain Description Pain Description: Burning, Tightness, Sharp, Dull, Acute Pain Location: Right UE shoulder Pain Description: fire like a hot poker Current Pain Intensity: 2-3 Worst Pain Intensity: 8+ Modalities - Treatment Modality: Ultrasound Parameters/Method Applied: 1.5w/cm2 x12 mins Treatment Area: anterior shoulder/middle deltoid Patient Position: Sitting - Hot Pack/Cryotherapy Treatment: Cryotherapy Comments:: CP x 10+ mins following therapy Interventions - Exercise/Activities Exercise/Activities/Manual Therapy: Manual therapy to shoulder, scapula, and deltoids. PROM/gentle stretching in supine position shoulder flexion/extension and IR/ER. AROM and A/AROM performed in supine positon with sc and HEP instruction continued. Prone/Hughston ex's performed 10/1 x6 planes. Pt performed codman's ex x 4 directions. Isometric ex x4,10/1. UBE x 3 mins along with finger ladder x 3 shoulder flexion and x2 abduction. Continued education on HEP and performed AROM shoulder shrugs/retraction(yellow tband) HOME EXERCISE PROGRAM: ice to right shoulder, medication for inflammation, AROM shoulder elevation/retraction and codman's exercise. - Objective Findings Objective Findings:: Pain increased with PROM and palpation. - Charges Timed Code Treatment Minutes: 59 Total Treatment Time: 70 Procedures billed for this date of service:: CP EX3 US Assessment Patient Education: Education of diagnosis, Body/Joint mechanics, Home Exercise Program, Home Safety, Activity Modification, Education of Plan of Care Patient demonstrates compliance with HEP?: Yes Short Term Goals Goal #1: Pt pain to decrease to 2/10 with AROM of RUE. Goal to be met by: 03/28/18 Progress towards goal: Progressing Goal #2: Pt to be independent with Home exercise program. Goal to be met by: 03/28/18 Progress towards goal: Progressing Goal #3: Pt to increase strength of RUE to 3-/5. Goal to be met by: 03/28/18 Progress towards goal: Progressing Goal #4: Pt to increase RUE shoulder flexion to 90 deg. Goal to be met by: 03/28/18 Progress towards goal: Partially Met Comments: Met in supine positon, AROM Prison Goals Goal #1: Pt pain to decrease to 0-1/10 with AROM of RUE. Goal to be met by: 04/27/18 Progress towards goal: Progressing Goal #2: Pt to increase shoulder abduction to 115 deg. Goal to be met by: 04/27/18 Progress towards goal: Progressing Goal #3: Pt to increase strength of RUE to 4+/5 to increase reaching. Goal to be met by: 04/27/18 Progress towards goal: Progressing Goal #4: Pt to increase RUE shoulder flexion to 155 deg. Goal to be met by: 04/27/18 Progress towards goal: Progressing Plan Dates of Mirror Framer Goals: 04/27/18 Expiration date of current Insurance Approval:: 04/27/18 PLAN: Continue per POC 3x/wk to max functional UE AROM/strength.
--- NOTE | 2018-04-02 08:12 | RS.OTDNOTE ---
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 Current Complaints/Gains: Pt states he has purchased all the supplies needed for a jonatan system and plans to install it this wknd with his nephews help. States UE feels better everday. Pain Assessment - Pain Description Pain Description: Burning, Tightness, Sharp, Dull, Acute Pain Location: Right UE shoulder Pain Description: fire like a hot poker Current Pain Intensity: 2 Worst Pain Intensity: 7 Modalities - Treatment Modality: Ultrasound Parameters/Method Applied: 1.5w/cm2 x 12 mins Patient Position: Sitting - Hot Pack/Cryotherapy Treatment: Cryotherapy Comments:: x10+ mins following tx Interventions - Exercise/Activities Exercise/Activities/Manual Therapy: Manual therapy to shoulder, scapula, and deltoids. PROM/gentle stretching in supine position shoulder flexion/extension and IR/ER. AROM and A/AROM performed in supine positon with sc and HEP instruction continued. Prone/Hughston ex's performed 12/11 x6 planes. Pt performed codman's ex x 4 directions. Isometric ex x4,12/11. UBE x 3 mins along with finger ladder x 3 shoulder flexion and x2 abduction and B UE jonatan system. Continued education on HEP and performed AROM shoulder shrugs/ retraction(yellow tband) HOME EXERCISE PROGRAM: ice to right shoulder, medication for inflammation, AROM shoulder elevation/retraction and codman's exercise. - Objective Findings Objective Findings:: Pain increased with PROM and palpation. - Charges Timed Code Treatment Minutes: 52 Total Treatment Time: 61 Procedures billed for this date of service:: CP US EX2 Assessment Patient Education: Education of diagnosis, Body/Joint mechanics, Home Exercise Program, Home Safety, Activity Modification, Education of Plan of Care Patient demonstrates compliance with HEP?: Yes Short Term Goals Goal #1: Pt pain to decrease to 2/10 with AROM of RUE. Goal to be met by: 03/28/18 Progress towards goal: Progressing Goal #2: Pt to be independent with Home exercise program. Goal to be met by: 03/28/18 Progress towards goal: Progressing Goal #3: Pt to increase strength of RUE to 3-/5. Goal to be met by: 03/28/18 Progress towards goal: Progressing Goal #4: Pt to increase RUE shoulder flexion to 90 deg. Goal to be met by: 03/28/18 Progress towards goal: Partially Met Comments: In supine position Shop Estimator Goals Goal #1: Pt pain to decrease to 0-1/10 with AROM of RUE. Goal to be met by: 04/27/18 Progress towards goal: Progressing Goal #2: Pt to increase shoulder abduction to 115 deg. Goal to be met by: 04/27/18 Progress towards goal: Progressing Goal #3: Pt to increase strength of RUE to 4+/5 to increase reaching. Goal to be met by: 04/27/18 Progress towards goal: Progressing Goal #4: Pt to increase RUE shoulder flexion to 155 deg. Goal to be met by: 04/27/18 Progress towards goal: Progressing Plan Dates of [facility] Goals: 04/27/18 Expiration date of current Insurance Approval:: 04/27/18 PLAN: Continue per POC to max fx UE AROM/strength.
--- NOTE | 2018-04-03 08:10 | RS.OTDNOTE ---
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 Current Complaints/Gains: Pt states good compliance with HEP over the wknd but states c/o pain. States he now has the jonatan system installed and has been utilizing it and his CP tx. States he is pleased with the progress and states good understanding of PRE's. Pain Assessment - Pain Description Pain Description: Burning, Tightness, Sharp, Dull, Acute Pain Location: Right UE shoulder Pain Description: fire like a hot poker Current Pain Intensity: 2 Worst Pain Intensity: 7 Modalities - Treatment Modality: Ultrasound Parameters/Method Applied: 1.5w/cm2 x 12 mins Treatment Area: anterior shoulder/middle deltoid - Hot Pack/Cryotherapy Treatment: Cryotherapy Comments:: CP x 10+ mins Interventions - Exercise/Activities Exercise/Activities/Manual Therapy: Manual therapy to shoulder, scapula, and deltoids. PROM/gentle stretching in supine position shoulder flexion/extension and IR/ER. AROM and A/AROM performed in supine positon with sc and HEP instruction continued. Prone/Hughston ex's performed 10/ x6 planes. Pt performed codman's ex x 4 directions. Isometric ex x4,10. UBE x 3 mins along with finger ladder x 3 shoulder flexion and x2 abduction and B UE jonatan system. Continued education on HEP and performed AROM shoulder shrugs/ retraction(yellow tband) HOME EXERCISE PROGRAM: ice to right shoulder, medication for inflammation, AROM shoulder elevation/retraction and codman's exercise. - Objective Findings Objective Findings:: Pain increased with PROM and palpation. - Charges Timed Code Treatment Minutes: 62 Total Treatment Time: 71 Procedures billed for this date of service:: EX3 US CP Assessment Patient Education: Education of diagnosis, Body/Joint mechanics, Home Exercise Program, Home Safety, Activity Modification, Education of Plan of Care Patient demonstrates compliance with HEP?: Yes Short Term Goals Goal #1: Pt pain to decrease to 2/10 with AROM of RUE. Goal to be met by: 03/28/18 Progress towards goal: Progressing Goal #2: Pt to be independent with Home exercise program. Goal to be met by: 03/28/18 Progress towards goal: Progressing Comments: PREs Goal #3: Pt to increase strength of RUE to 3-/5. Goal to be met by: 03/28/18 Progress towards goal: Progressing Goal #4: Pt to increase RUE shoulder flexion to 90 deg. Goal to be met by: 03/28/18 Progress towards goal: Partially Met Comments: in supine Retirement Goals Goal #1: Pt pain to decrease to 0-1/10 with AROM of RUE. Goal to be met by: 04/27/18 Progress towards goal: Progressing Goal #2: Pt to increase shoulder abduction to 115 deg. Goal to be met by: 04/27/18 Progress towards goal: Progressing Goal #3: Pt to increase strength of RUE to 4+/5 to increase reaching. Goal to be met by: 04/27/18 Progress towards goal: Progressing Goal #4: Pt to increase RUE shoulder flexion to 155 deg. Goal to be met by: 04/27/18 Progress towards goal: Progressing Plan Dates of Retirement Goals: 04/27/18 Expiration date of current Insurance Approval:: 04/27/18 PLAN: Continue per POC to max functional UE strength/AROM
--- NOTE | 2018-04-05 08:39 | RS.OTDNOTE ---
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 Current Complaints/Gains: Pt states 0-min pain at rest and during the majority of ex's this date. States he has been compliant with his HEP and not pushed it to hard the past few days. Pain Assessment - Pain Description Pain Description: Burning, Tightness, Sharp, Dull, Acute Pain Location: Right UE shoulder Pain Description: fire like a hot poker Current Pain Intensity: 2 Worst Pain Intensity: 6 Modalities - Treatment Modality: Ultrasound Parameters/Method Applied: 1.5w/cm2 x 12 mins Treatment Area: shoulder Patient Position: Sitting - Hot Pack/Cryotherapy Treatment: Hot Pack, Cryotherapy Interventions - Exercise/Activities Exercise/Activities/Manual Therapy: Manual therapy to shoulder, scapula, and deltoids. PROM/gentle stretching in supine position shoulder flexion/extension and IR/ER. AROM and A/AROM performed in supine positon with sc and HEP instruction continued. Prone/Hughston ex's performed 12/11 x6 planes. Pt performed codman's ex x 4 directions. Isometric ex x4,12/11. UBE x 3 mins along with finger ladder x 3 shoulder flexion and x2 abduction and B UE jonatan system. Continued education on HEP and performed AROM shoulder shrugs/ retraction(yellow tband) HOME EXERCISE PROGRAM: ice to right shoulder, medication for inflammation, AROM shoulder elevation/retraction and codman's exercise. - Objective Findings Objective Findings:: Pain increased with PROM and palpation. - Charges Timed Code Treatment Minutes: 59 Total Treatment Time: 71 Procedures billed for this date of service:: CP EX3 US Assessment Patient Education: Education of diagnosis, Body/Joint mechanics, Home Exercise Program, Home Safety, Activity Modification, Education of Plan of Care Patient demonstrates compliance with HEP?: Yes Short Term Goals Goal #1: Pt pain to decrease to 2/10 with AROM of RUE. Goal to be met by: 03/28/18 Progress towards goal: Progressing Goal #2: Pt to be independent with Home exercise program. Goal to be met by: 03/28/18 Progress towards goal: Progressing Goal #3: Pt to increase strength of RUE to 3-/5. Goal to be met by: 03/28/18 Progress towards goal: Progressing Goal #4: Pt to increase RUE shoulder flexion to 90 deg. Goal to be met by: 03/28/18 Progress towards goal: Partially Met Bolt Loader Goals Goal #1: Pt pain to decrease to 0-1/10 with AROM of RUE. Goal to be met by: 04/27/18 Progress towards goal: Progressing Goal #2: Pt to increase shoulder abduction to 115 deg. Goal to be met by: 04/27/18 Progress towards goal: Progressing Goal #3: Pt to increase strength of RUE to 4+/5 to increase reaching. Goal to be met by: 04/27/18 Progress towards goal: Progressing Goal #4: Pt to increase RUE shoulder flexion to 155 deg. Goal to be met by: 04/27/18 Progress towards goal: Progressing Plan Dates of [facility] Goals: 04/27/18 Expiration date of current Insurance Approval:: 04/27/18 PLAN: Continue per POC to max fx UE AROM/strength.
--- NOTE | 2018-04-09 08:47 | RS.OTPN ---
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 Prior Level of Function.....Patient was independent with: ADL's, Self Care, Work /Vocation, Caregiving, Ambulation/Mobility, Community Integration/Access History of Condition/Mechanism of Injury: Pt reports he had surgery in [place] with Dr. Sandy Doll on February 07, 2018. Pt has been in a sling since surgery and was told to wear the sling until March 21, 2018. Pt has just now started taking the sling off for a shower. Pt has been sleeping in a recliner since the surgery. Dr. Alanis report that patient had an incomplete Rotator cuff tear and a rupture of the Right shoulder. Level of Function: Pt is not able to lift anything. Pt reports 5/10 pain all over right shoulder. Pt has difficulty donning his shirt but is able to independently. Pt is minimal assistance for donning his splint. Functional Limitations: Sleep, Self Care, Reaching, Lifting, Carrying Current Complaints/Gains: Pt complains of soreness. Pt is improving in his AROM of the RUE. Pt has increased AROM of RUE shlder flexion, abduction, extension, Internal Rot. Pt has pain with the Ext. Rot. Pain Assessment - Pain Description Pain Description: Burning, Tightness, Sharp, Dull, Acute Pain Location: Right UE shoulder Pain Description: soreness Current Pain Intensity: 2 Worst Pain Intensity: 10 Functional Outcome Measures UE Functional Index: 21 - G Codes & Severity Modifier G Codes: CL at 73% impaired for PN. CH is goal. Source of G Code score: Carry, moving, and handling objects Observation - Observation Posture: Forward Head, Rounded Shoulders Handedness: Right Shoulder ROM: Left WFL's Shoulder Muscle Strength: Left WFL's - Right Shoulder ROM Right Shoulder Flexion: 122 Right Shoulder Extension: 69 Right Shoulder Abduction: 70 Right Shoulder Horizontal Adduction: 30 Right Shoulder Internal Rotation: 63 Right Shoulder External Rotation: 22 (After stretching 44 deg) Right Shoulder ROM Limitations: Soft Tissue Tightness - Right Shoulder Strength Right Shoulder Flexion: 3- Fair- Right Shoulder Extension: 3- Fair- Right Shoulder Abduction: 2+ Poor+ Right Shoulder Adduction: 3- Fair- Right Shoulder External Rotation: 2+ Poor+ Right Shoulder Internal Rotation: 3- Fair- Elbow ROM: Bilaterally WFL's Elbow Muscle Strength: Bilaterally WFL's Wrist ROM: Bilaterally WFL's Wrist Muscle Strength: Bilaterally WFL's Palpation Palpation Findings: Tenderness, Muscle Guarding Sensation Right Upper Extremity: Intact/Normal Left Upper Extremity: Intact/Normal Modalities - Hot Pack/Cryotherapy Treatment: Cryotherapy Interventions - Exercise/Activities Exercise/Activities/Manual Therapy: Manual therapy to shoulder, scapula, and deltoids. PROM/gentle stretching in supine position shoulder flexion/extension and IR/ER. AROM and A/AROM performed in supine positon with sc and HEP instruction continued. Isometric ex x4,10. UBE x 3 mins along with finger ladder x 3 shoulder flexion and x2min. & abduction for 2 minutes and B UE jonatan system. Continued education on HEP. HOME EXERCISE PROGRAM: ice to right shoulder, medication for inflammation, AROM shoulder elevation/retraction and codman's exercise. Educated patient to complete isometric exercises at home to decrease the pain and strengthen. - Objective Findings Objective Findings:: Pain increased with PROM and palpation. - Charges Timed Code Treatment Minutes: 75 Total Treatment Time: 75 Procedures billed for this date of service:: HP, EX x2, MT, CP Assessment Assessment: Pt has increased in AROM of RUE shoulder as well as strength. Pt is doing better monitoring his pain and continues with icing at home. Rehab Potential: Good Problems/Comments: Difficulty with external rotation. Pt has increased pain and decreased AROM. Short Term Goals Goal #1: Pt pain to decrease to 2/10 with AROM of RUE. Goal to be met by: 04/20/18 Goal #2: Pt to be independent with Home exercise program. Goal to be met by: 04/20/18 Goal #3: Pt to increase strength of RUE to 3-/5. Goal to be met by: 04/20/18 Goal #4: Pt to increase RUE shoulder flexion to 155 of AROM Goal to be met by: 04/20/18 Purchasing Specialist Goals Goal #1: Pt pain to decrease to 0-1/10 with AROM of RUE. Goal to be met by: 04/27/18 Goal #2: Pt to increase shoulder abduction to 115 deg. Goal to be met by: 04/27/18 Goal #3: Pt to increase strength of RUE to 4+/5 to increase reaching. Goal to be met by: 04/27/18 Goal #4: Pt to increase RUE shoulder AROM to WFL. Goal to be met by: 04/27/18 Plan Dates of Purchasing Specialist Goals: 04/27/18 Expiration date of current Insurance Approval:: 04/27/18 PLAN: OT to continue with POC and reassess on 04/27/18. Frequency: 3 X week Duration: 3 weeks
--- NOTE | 2018-04-11 08:18 | RS.OTDNOTE ---
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 Current Complaints/Gains: Pt states he was doing good with his HEP over the wknd but woke with increased c/o back pain on Monday and was unable to perform any exercises. States he feels he had a set-back from not stretching his UE one day. Pain Assessment - Pain Description Pain Description: Burning, Tightness, Sharp, Dull, Acute Pain Location: Right UE shoulder Pain Description: soreness Current Pain Intensity: 4 Worst Pain Intensity: 8 Modalities - Treatment Modality: Electrical Stim Unattended Parameters/Method Applied: Hi-volt x 20 mins to pt tolerance. Treatment Area: shoulder Patient Position: Sitting - Hot Pack/Cryotherapy Treatment: Cryotherapy Comments:: x 20 mins Interventions - Exercise/Activities Exercise/Activities/Manual Therapy: Manual therapy to shoulder, scapula, and deltoids. PROM/gentle stretching in supine position shoulder flexion/extension and IR/ER. AROM and A/AROM performed in supine positon with sc and HEP instruction continued. Isometric ex x4,10/1. UBE x 5 mins along with finger ladder x 3 shoulder flexion & abduction. B UE jonatan system. Wall stretches, ball on the wall, and shoulder protraction performed. Continued education on HEP. HOME EXERCISE PROGRAM: ice to right shoulder, medication for inflammation, AROM shoulder elevation/retraction and codman's exercise. Educated patient to complete isometric exercises at home to decrease the pain and strengthen. - Objective Findings Objective Findings:: Pain increased with PROM and palpation. - Charges Timed Code Treatment Minutes: 56 Total Treatment Time: 79 Procedures billed for this date of service:: CP EX3 ESTIM Assessment Patient Education: Education of diagnosis, Body/Joint mechanics, Home Exercise Program, Home Safety, Activity Modification, Education of Plan of Care Patient demonstrates compliance with HEP?: Yes Short Term Goals Goal #1: Pt pain to decrease to 2/10 with AROM of RUE. Goal to be met by: 04/20/18 Progress towards goal: Progressing Goal #2: Pt to be independent with Home exercise program. Goal to be met by: 04/20/18 Progress towards goal: Progressing Goal #3: Pt to increase strength of RUE to 3-/5. Goal to be met by: 04/20/18 Progress towards goal: Progressing Goal #4: Pt to increase RUE shoulder flexion to 155 of AROM Goal to be met by: 04/20/18 Progress towards goal: Progressing Food Sales Clerk Goals Goal #1: Pt pain to decrease to 0-1/10 with AROM of RUE. Goal to be met by: 04/27/18 Progress towards goal: Progressing Goal #2: Pt to increase shoulder abduction to 115 deg. Goal to be met by: 04/27/18 Progress towards goal: Progressing Goal #3: Pt to increase strength of RUE to 4+/5 to increase reaching. Goal to be met by: 04/27/18 Progress towards goal: Progressing Goal #4: Pt to increase RUE shoulder AROM to WFL. Goal to be met by: 04/27/18 Progress towards goal: Progressing Plan Dates of Food Sales Clerk Goals: 04/27/18 Expiration date of current Insurance Approval:: 04/27/18 PLAN: Continue per POC/protocol to max UE AROM/strength.
--- NOTE | 2018-04-12 08:19 | RS.OTDNOTE ---
Subjective Date of Note: 04/11/18 Visit #: 13 Number of visits approved by Insurance: 18 Date of Evaluation: 03/14/18 Payer Source: MEDICARE Treatment Diagnosis: M75.111 Incomplete RCT with Rupture of Right Shoulder *Precautions: Uses a cane, HTN. Current Complaints/Gains: Pt states UE is starting to feel normal. States he has been able to wash his hair with A of (R) UE the past few days. States good compliance with HEP/stretching and use of CP. Pain Assessment - Pain Description Pain Description: Burning, Tightness, Sharp, Dull, Acute Pain Location: Right UE shoulder Pain Description: soreness Current Pain Intensity: 0 Worst Pain Intensity: 7 Modalities - Hot Pack/Cryotherapy Treatment: Cryotherapy Comments:: x10 mins following therapy Interventions - Exercise/Activities Exercise/Activities/Manual Therapy: Manual therapy to shoulder, scapula, and deltoids. PROM/gentle stretching in supine position shoulder flexion/extension, abd/adduction and IR/ER. AROM and A/AROM performed in supine positon with sc and HEP instruction continued. Isometric ex x4,10/1. UBE x 5 mins along with finger ladder x 3 shoulder flexion & abduction. B UE jonatan system. Wall stretches, ball on the wall, shelf AROM of shoulder flexion/abd, sitting cane ex 's and shoulder protraction performed. Continued education on HEP. HOME EXERCISE PROGRAM: ice to right shoulder, medication for inflammation, AROM shoulder elevation/retraction and codman's exercise. Educated patient to complete isometric exercises and sc A/AROM at home to decrease the pain and strengthen UE. - Other Treatment/Services Treatment Details: AG positions performed with increased AROM. Increased RTC and deltoid strength noted. - Objective Findings Objective Findings:: Pain increased with PROM and palpation. - Charges Timed Code Treatment Minutes: 49 Total Treatment Time: 61 Procedures billed for this date of service:: EX3 CP Assessment Patient Education: Education of diagnosis, Body/Joint mechanics, Home Exercise Program, Home Safety, Activity Modification, Education of Plan of Care Patient demonstrates compliance with HEP?: Yes Short Term Goals Goal #1: Pt pain to decrease to 2/10 with AROM of RUE. Goal to be met by: 04/20/18 Progress towards goal: Progressing Goal #2: Pt to be independent with Home exercise program. Goal to be met by: 04/20/18 Progress towards goal: Partially Met Comments: PREs Goal #3: Pt to increase strength of RUE to 3-/5. Goal to be met by: 04/20/18 Progress towards goal: Partially Met Goal #4: Pt to increase RUE shoulder flexion to 155 of AROM Goal to be met by: 04/20/18 Progress towards goal: Partially Met Comments: after PROM/stretching of UE Prison Goals Goal #1: Pt pain to decrease to 0-1/10 with AROM of RUE. Goal to be met by: 04/27/18 Progress towards goal: Progressing Goal #2: Pt to increase shoulder abduction to 115 deg. Goal to be met by: 04/27/18 Progress towards goal: Progressing Goal #3: Pt to increase strength of RUE to 4+/5 to increase reaching. Goal to be met by: 04/27/18 Progress towards goal: Progressing Goal #4: Pt to increase RUE shoulder AROM to WFL. Goal to be met by: 04/27/18 Progress towards goal: Progressing Plan Dates of Prison Goals: 04/27/18 Expiration date of current Insurance Approval:: 04/27/18 PLAN: Continue per POC to max functional UE AROM and strength
== END 2018-04-12 23:59 | disposition short-term general hospital (02) ==
PROVIDERS: ATTEND Orthopaedic Surgery
DX: M75.111 Incomplete rotator cuff tear or rupture of right shoulder, not specified as traumatic (principal)

== ENCOUNTER 2018-05-09 14:00 | Outpatient (RCR) ==
--- NOTE | 2018-04-16 08:49 | RS.OTDNOTE ---
Subjective Date of Note: 04/13/18 Visit #: 14 Number of visits approved by Insurance: 18 Date of Evaluation: 03/14/18 Payer Source: MEDICARE Treatment Diagnosis: M75.111 Incomplete RCT with Rupture of Right Shoulder *Precautions: Uses a cane, HTN. Current Complaints/Gains: Pt states UE feels good but c/o back pain continues. Pain Assessment - Pain Description Pain Location: Right UE shoulder Pain Description: soreness Modalities - Hot Pack/Cryotherapy Treatment: Hot Pack, Cryotherapy Comments:: HP applied during restor use for warm-up with CP applied following tx. pt ed continued for CP application at home. Interventions - Exercise/Activities Exercise/Activities/Manual Therapy: Manual therapy to shoulder, scapula, and deltoids. PROM/gentle stretching in supine position shoulder flexion/extension, abd/adduction and IR/ER. AROM and A/AROM performed in supine positon with sc and HEP instruction continued. Isometric ex x4,10/1. UBE x 10 mins along with finger ladder x 3 shoulder flexion & abduction. B UE jonatan system. Wall stretches, ball on the wall, shelf AROM of shoulder flexion/abd, sitting cane ex 's and shoulder protraction performed. Continued education on HEP/PRE's. Total ex time of 45+ mins. HOME EXERCISE PROGRAM: ice to right shoulder, medication for inflammation, AROM shoulder elevation/retraction and codman's exercise. Educated patient to complete isometric exercises and sc A/AROM at home to decrease the pain and strengthen UE. - Objective Findings Objective Findings:: Pain increased with PROM and palpation. - Charges Timed Code Treatment Minutes: 52 Total Treatment Time: 61 Procedures billed for this date of service:: CP EX3 Assessment Patient Education: Education of diagnosis, Body/Joint mechanics, Home Exercise Program, Home Safety, Activity Modification, Education of Plan of Care Patient demonstrates compliance with HEP?: Yes Short Term Goals Goal #1: Pt pain to decrease to 2/10 with AROM of RUE. Goal to be met by: 04/20/18 Progress towards goal: Progressing Goal #2: Pt to be independent with Home exercise program. Goal to be met by: 04/20/18 Progress towards goal: Partially Met Comments: PRE's Goal #3: Pt to increase strength of RUE to 3-/5. 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 Goal to be met by: 04/27/18 Progress towards goal: Progressing Goal #2: Pt to increase shoulder abduction to 115 deg. Goal to be met by: 04/27/18 Progress towards goal: Progressing Goal #3: Pt to increase strength of RUE to 4+/5 to increase reaching. Goal to be met by: 04/27/18 Progress towards goal: Progressing Goal #4: Pt to increase RUE shoulder AROM to WFL. Goal to be met by: 04/27/18 Progress towards goal: Progressing Plan Dates of Correction Goals: 04/27/18 Expiration date of current Insurance Approval:: 04/27/18 PLAN: Continue per POC to maxamize functional UE AROM/strength.
--- NOTE | 2018-04-18 08:22 | RS.OTDNOTE ---
Subjective Date of Note: 04/17/18 Visit #: 15 Number of visits approved by Insurance: [id number] Date of Evaluation: 03/14/18 Payer Source: MEDICARE Treatment Diagnosis: M75.111 Incomplete RCT with Rupture of Right Shoulder *Precautions: Uses a cane, HTN. Current Complaints/Gains: Pt states UE feels "pretty good" but back pain is high. 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 States he may have to return to [facility] for a back consult, they have talked about add'l surgeries or to return to therapy for his back. Pain Assessment - Pain Description Pain Location: Right UE shoulder Pain Description: soreness Modalities - Hot Pack/Cryotherapy Treatment: Cryotherapy Comments:: CP x 10+ mins Interventions - Exercise/Activities Exercise/Activities/Manual Therapy: Manual therapy to shoulder, scapula, and deltoids. PROM/gentle stretching in sitting position shoulder flexion/extension , abd/adduction and IR/ER. AROM and A/AROM performed in sitting positon with sc and HEP instruction continued. Isometric ex x4,12/11. UBE x 10 mins along with finger ladder x 3 shoulder flexion & abduction. B UE jonatan system. Wall stretches, ball on the wall, shelf AROM of shoulder flexion/abd, sitting cane ex 's and shoulder protraction performed along with body blade x 1 mins. Continued education on HEP/PRE's. Total ex time of 45+ mins. HOME EXERCISE PROGRAM: ice to right shoulder, medication for inflammation, AROM shoulder elevation/retraction and codman's exercise. Educated patient to complete isometric exercises and sc A/AROM at home to decrease the pain and strengthen UE. - Objective Findings Objective Findings:: Pain increased with PROM and palpation. - Charges Timed Code Treatment Minutes: 48 Total Treatment Time: 60 Procedures billed for this date of service:: EX3 CP Assessment Patient Education: Education of diagnosis, Body/Joint mechanics, Home Exercise Program, Home Safety, Activity Modification, Education of Plan of Care Problems/Comments: AROM increasing with each therapy session Short Term Goals Goal #1: Pt pain to decrease to 2/10 with AROM of RUE. Goal to be met by: 04/20/18 Progress towards goal: Progressing Goal #2: Pt to be independent with Home exercise program. Goal to be met by: 04/20/18 Progress towards goal: Partially Met Comments: PREs continued Goal #3: Pt to increase strength of RUE to 3-/5. Goal to be met by: 04/20/18 Progress towards goal: Met Goal #4: Pt to increase RUE shoulder flexion to 155 of AROM Goal to be met by: 04/20/18 Progress towards goal: Met Senior Living Goals Goal #1: Pt pain to decrease to 0-1/10 with AROM of RUE. Goal to be met by: 04/27/18 Progress towards goal: Progressing Goal #2: Pt to increase shoulder abduction to 115 deg. Goal to be met by: 04/27/18 Progress towards goal: Partially Met Comments: after prolonged stretching Goal #3: Pt to increase strength of RUE to 4+/5 to increase reaching. Goal to be met by: 04/27/18 Progress towards goal: Progressing Goal #4: Pt to increase RUE shoulder AROM to WFL. Goal to be met by: 04/27/18 Progress towards goal: Partially Met Plan Dates of Senior Living Goals: 04/27/18 Expiration date of current Insurance Approval:: 04/27/18 PLAN: Continue per POC to max functional UE AROM/strength
--- NOTE | 2018-04-19 08:42 | RS.OTDNOTE ---
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 Current Complaints/Gains: Pt states he returns to MD next . States stiffness at beginning of tx but works out quickly. States 0-1 c/o pain at end range and 3/10 with ER. Pt demo full AROM shoulder flexion. Pain Assessment - Pain Description Pain Location: Right UE shoulder Pain Description: soreness Modalities - Hot Pack/Cryotherapy Treatment: Cryotherapy Comments:: x 10+ mins following tx with continued education for home use of his cryocuff. Interventions - Exercise/Activities Exercise/Activities/Manual Therapy: Manual therapy to shoulder, scapula, and deltoids. PROM/gentle stretching in sitting position shoulder flexion/extension , abd/adduction and IR/ER. AROM and A/AROM performed in sitting positon with sc and HEP instruction continued. Isometric ex x4,12/11. UBE x 10 mins along with finger ladder x 3 shoulder flexion & abduction. B UE jonatan system. Wall stretches, ball on the wall, shelf AROM of shoulder flexion/abd, sitting cane ex 's and shoulder protraction performed along with body blade x 1 mins. Continued education on HEP/PRE's. Total ex time of 45+ mins. HOME EXERCISE PROGRAM: ice to right shoulder, medication for inflammation, AROM shoulder elevation/retraction and codman's exercise. Educated patient to complete isometric exercises and sc A/AROM at home to decrease the pain and strengthen UE. - Objective Findings Objective Findings:: Pain decreased 0-3/10 - Charges Timed Code Treatment Minutes: 50 Total Treatment Time: 59 Procedures billed for this date of service:: CP EX3 Assessment Patient Education: Education of diagnosis, Body/Joint mechanics, Home Exercise Program, Home Safety, Activity Modification, Education of Plan of Care Patient demonstrates compliance with HEP?: Yes Short Term Goals Goal #1: Pt pain to decrease to 2/10 with AROM of RUE. Goal to be met by: 04/20/18 (ER 3/10) Progress towards goal: Partially Met Goal #2: Pt to be independent with Home exercise program. Goal to be met by: 04/20/18 (PREs) Progress towards goal: Partially Met Goal #3: Pt to increase strength of RUE to 3-/5. Goal to be met by: 04/20/18 Progress towards goal: Met Goal #4: Pt to increase RUE shoulder flexion to 155 of AROM Goal to be met by: 04/20/18 Progress towards goal: Met Edi Consultant Goals Goal #1: Pt pain to decrease to 0-1/10 with AROM of RUE. Goal to be met by: 04/27/18 Progress towards goal: Progressing Goal #2: Pt to increase shoulder abduction to 115 deg. Goal to be met by: 04/27/18 Progress towards goal: Met Goal #3: Pt to increase strength of RUE to 4+/5 to increase reaching. Goal to be met by: 04/27/18 Progress towards goal: Partially Met Goal #4: Pt to increase RUE shoulder AROM to WFL. Goal to be met by: 04/27/18 Progress towards goal: Partially Met Plan Dates of Usp Goals: 04/27/18 Expiration date of current Insurance Approval:: 04/27/18 PLAN: Pt has x2 visits left on this order. Pt to return to MD next wk. OTR to reasses write progess note for add'l visits to return pt to PLOF.
--- NOTE | 2018-04-23 08:05 | RS.OTCXNS ---
OT Case Note Date of Scheduled Appointment: 04/23/18 Type: Cancel (No reason given.)
--- NOTE | 2018-04-23 09:04 | RS.OTPN ---
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 Prior Level of Function.....Patient was independent with: ADL's, Self Care, Work /Vocation, Caregiving, Ambulation/Mobility, Community Integration/Access History of Condition/Mechanism of Injury: Pt reports he had surgery in [place] with Dr. Sandy Doll on February 07, 2018. Pt has been in a sling since surgery and was told to wear the sling until March 21, 2018. Pt has just now started taking the sling off for a shower. Pt has been sleeping in a recliner since the surgery. Dr. Alanis report that patient had an incomplete Rotator cuff tear and a rupture of the Right shoulder. Level of Function: Pt is not able to lift anything. Pt reports 5/10 pain all over right shoulder. Pt has difficulty donning his shirt but is able to independently. Pt is minimal assistance for donning his splint. Functional Limitations: Sleep, Self Care, Reaching, Lifting, Carrying Current Complaints/Gains: Pt making progress. Pain Assessment - Pain Description Pain Description: Tightness, Sharp Pain Location: Right UE shoulder Pain Description: soreness Current Pain Intensity: 0 Worst Pain Intensity: 9 Other comments regarding pain:: Pt has pain with RUE shoulder flexion at end of range. OT completed manual therapy to the right scapula/subscapularis muscle to decrease pain and increase right scapula gliding. Functional Outcome Measures UE Functional Index: 54 - G Codes & Severity Modifier G Codes: . Source of G Code score: . Observation - Observation Handedness: Right Shoulder ROM: Left WFL's Shoulder Muscle Strength: Left WFL's - Left Shoulder ROM Comments: Pt has pain with shoulder flexion end range. - Right Shoulder ROM Right Shoulder Flexion: 135 Right Shoulder Extension: 70 Right Shoulder Abduction: 70 Right Shoulder Horizontal Adduction: 35 Right Shoulder Internal Rotation: 68 Right Shoulder External Rotation: 58 Right Shoulder ROM Limitations: Muscle Weakness, Pain - Left Shoulder Strength Left Shoulder Flexion: 4+ Good + Left Shoulder Extension: 2+ Poor+ Left Shoulder Abduction: 4+ Good + Left Shoulder Adduction: 4+ Good + Left Shoulder External Rotation: 4+ Good + Left Shoulder Internal Rotation: 4+ Good + - Right Shoulder Strength Right Shoulder Flexion: 3- Fair- Right Shoulder Extension: 3- Fair- Right Shoulder Abduction: 2+ Poor+ Right Shoulder Adduction: 4- Good- Right Shoulder External Rotation: 2+ Poor+ Right Shoulder Internal Rotation: 3- Fair- Elbow ROM: Bilaterally WFL's Elbow Muscle Strength: Bilaterally WFL's Wrist ROM: Bilaterally WFL's Wrist Muscle Strength: Bilaterally WFL's Palpation Palpation Findings: Tenderness, Trigger Point, Muscle Guarding Sensation Right Upper Extremity: Intact/Normal Left Upper Extremity: Intact/Normal Modalities - Hot Pack/Cryotherapy Treatment: Cryotherapy Comments:: Cold pack to RUE shoulder Interventions - Exercise/Activities Exercise/Activities/Manual Therapy: Manual therapy to shoulder, scapula, and deltoids. PROM/gentle stretching in sitting position shoulder flexion/extension , abd/adduction and IR/ER. AROM and A/AROM performed in sitting positon with sc and HEP instruction continued. Isometric ex x4,10/. UBE x 10 mins along with finger ladder x 3 shoulder flexion & abduction. B UE jonatan system. Wall stretches, ball on the wall, shelf AROM of shoulder flexion/abd, sitting cane ex 's and shoulder protraction performed along with body blade x 1 mins. Continued education on HEP/PRE's. Total ex time of 45+ mins. HOME EXERCISE PROGRAM: ice to right shoulder, medication for inflammation, AROM shoulder elevation/retraction and codman's exercise. Educated patient to complete isometric exercises and sc A/AROM at home to decrease the pain and strengthen UE. - Objective Findings Objective Findings:: Pain decreased 0-3/10 - Charges Timed Code Treatment Minutes: 60 Total Treatment Time: 60 Procedures billed for this date of service:: MT, EX x 2, CP Assessment Assessment: Pt RUE AROM is improving in all areas as well as strength. Pt has improved to 54% in the RUE. Pt has increased pain with shoulder flexion. Manual therapy to subscapularis and manipulation of scapula to decrease pain. Patient Education: Education of diagnosis, Education of Plan of Care Rehab Potential: Good Problems/Comments: Pain and weakness of RUE following surgery. Pt continues to make progress. Short Term Goals Goal #1: Pt pain to decrease to 0-1/10 with AROM of RUE. Goal to be met by: 05/07/18 Goal #2: Pt to be independent with Home exercise program. Goal to be met by: 05/07/18 (PREs) Goal #3: Pt to increase strength of RUE to 4/5. Goal to be met by: 05/07/18 Goal #4: Pt to increase RUE shoulder flexion to 155 of AROM with stretching. Goal to be met by: 05/07/18 [facility] Goals Goal #1: Pt pain to decrease to 0/10 with AROM of RUE. Goal to be met by: 05/21/18 Goal #2: Pt to increase shoulder abduction to 120 deg. Goal to be met by: 05/21/18 Goal #3: Pt to increase strength of RUE to 4+/5 to increase reaching. Goal to be met by: 05/21/18 Goal #4: Pt to increase RUE shoulder AROM to WFL without stretching. Goal to be met by: 05/21/18 Plan Dates of Mill Work Goals: 05/21/18 Expiration date of current Insurance Approval:: 05/21/18 PLAN: OT to continue with treatment 3XWk x 4 weeks to increase RUE shoulder AROM and strength. Frequency: 3 X week Duration: 4 weeks
--- NOTE | 2018-05-01 08:22 | RS.OTDNOTE ---
Subjective Date of Note: 04/30/18 Visit #: 17 Number of visits approved by Insurance: 30 Date of Evaluation: 03/14/18 Payer Source: MEDICARE Treatment Diagnosis: M75.111 Incomplete RCT with Rupture of Right Shoulder *Precautions: Uses a cane, HTN. Current Complaints/Gains: Pt has not attended therapy x1 wk 2* MD appointments and weather/road conditions. States he has continuation orders for 3x wk/4 wks and that his MD was pleased and surprised with his progess and to continue his current PRE's. States also that he feels a "shift" in his UE. OTR consulted. Pain Assessment - Pain Description Pain Description: Tightness, Dull Pain Location: Right UE shoulder Pain Description: soreness Current Pain Intensity: 1-2 Worst Pain Intensity: 6 Modalities - Treatment Modality: Ultrasound Parameters/Method Applied: 1.5w/cm2 x 12 mins, AC joint Patient Position: Sitting - Hot Pack/Cryotherapy Treatment: Cryotherapy Comments:: CP following tx Interventions - Exercise/Activities Exercise/Activities/Manual Therapy: Manual therapy to shoulder, scapula, and deltoids. PROM/gentle stretching in sitting/supine position shoulder flexion/ extension, abd/adduction and IR/ER. AROM and A/AROM performed in sitting positon with sc and HEP instruction continued. Isometric ex x4,10/1. Finger ladder x 3 shoulder flexion & abduction. B UE jonatan system. Wall stretches, ball on the wall, shelf AROM of shoulder flexion/abd, sitting cane ex's and shoulder protraction performed along with body blade x 1 mins. Continued education on HEP/PRE's. Pt also performed prone RTC series ex for shoulder stabilitization. HOME EXERCISE PROGRAM: ice to right shoulder, medication for inflammation, AROM shoulder elevation/retraction and codman's exercise. Educated patient to complete isometric exercises and sc A/AROM at home to decrease the pain and strengthen UE. - Objective Findings Objective Findings:: AROM increases following tx. Pt states he will perform UE PRE's and CP application. - Charges Timed Code Treatment Minutes: 49 Total Treatment Time: 61 Procedures billed for this date of service:: CP US EX2 Assessment Patient Education: Education of diagnosis, Body/Joint mechanics, Home Exercise Program, Home Safety, Activity Modification, Education of Plan of Care Patient demonstrates compliance with HEP?: Yes Short Term Goals Goal #1: Pt pain to decrease to 0-1/10 with AROM of RUE. Goal to be met by: 05/07/18 Progress towards goal: Progressing Goal #2: Pt to be independent with Home exercise program. Goal to be met by: 05/07/18 (PREs) Progress towards goal: Progressing Goal #3: Pt to increase strength of RUE to 4/5. Goal to be met by: 05/07/18 Progress towards goal: Progressing Goal #4: Pt to increase RUE shoulder flexion to 155 of AROM with stretching. Goal to be met by: 05/07/18 Progress towards goal: Progressing Histology Supervisor Goals Goal #1: Pt pain to decrease to 0/10 with AROM of RUE. Goal to be met by: 05/21/18 Progress towards goal: Progressing Goal #2: Pt to increase shoulder abduction to 120 deg. Goal to be met by: 05/21/18 Progress towards goal: Progressing Goal #3: Pt to increase strength of RUE to 4+/5 to increase reaching. Goal to be met by: 05/21/18 Progress towards goal: Progressing Goal #4: Pt to increase RUE shoulder AROM to WFL without stretching. Goal to be met by: 05/21/18 Progress towards goal: Progressing Plan Dates of Jail Goals: 05/21/18 Expiration date of current Insurance Approval:: 05/21/18 PLAN: Continue per POC to max functional UE AROM and strength.
--- NOTE | 2018-05-02 09:41 | RS.OTDNOTE ---
Subjective Date of Note: 05/01/18 Visit #: 19 Number of visits approved by Insurance: 30 Date of Evaluation: 03/14/18 Payer Source: MEDICARE Treatment Diagnosis: M75.111 Incomplete RCT with Rupture of Right Shoulder *Precautions: Uses a cane, HTN. Current Complaints/Gains: Pt states less c/o popping this date. States "stiffness feels better". States decreased c/o pain and rates from 0-4. Pain Assessment - Pain Description Pain Description: Tightness, Dull Pain Location: Right UE shoulder Pain Description: soreness Current Pain Intensity: 0 Worst Pain Intensity: 4 Modalities - Treatment Modality: Ultrasound Parameters/Method Applied: 1.5w/cm2 x 12 mins Treatment Area: Anterior shoulder/AC joint - Hot Pack/Cryotherapy Treatment: Hot Pack, Cryotherapy Interventions - Exercise/Activities Exercise/Activities/Manual Therapy: Manual therapy to shoulder, scapula, and deltoids. PROM/gentle stretching in sitting/supine position shoulder flexion/ extension, abd/adduction and IR/ER. AROM and A/AROM performed in sitting positon with sc and HEP instruction continued. Isometric ex x4,10/1. Finger ladder x 3 shoulder flexion & abduction. B UE jonatan system. Wall stretches, ball on the wall, shelf AROM of shoulder flexion/abd, sitting cane ex's and shoulder protraction performed along with body blade x 1 mins. Continued education on HEP/PRE's. Pt also performed prone RTC series ex for shoulder stabilitization. HOME EXERCISE PROGRAM: ice to right shoulder, medication for inflammation, AROM shoulder elevation/retraction and codman's exercise. Educated patient to complete isometric exercises and sc A/AROM at home to decrease the pain and strengthen UE. - Objective Findings Objective Findings:: AROM increases following tx. Pt states he will perform UE PRE's and CP application. - Charges Timed Code Treatment Minutes: 50 Total Treatment Time: 61 Procedures billed for this date of service:: CP US EX2 Assessment Patient Education: Education of diagnosis, Body/Joint mechanics, Home Exercise Program, Home Safety, Activity Modification, Education of Plan of Care Patient demonstrates compliance with HEP?: Yes Short Term Goals Goal #1: Pt pain to decrease to 0-1/10 with AROM of RUE. Goal to be met by: 05/07/18 Progress towards goal: Progressing Goal #2: Pt to be independent with Home exercise program. Goal to be met by: 05/07/18 (PREs) Progress towards goal: Progressing Goal #3: Pt to increase strength of RUE to 4/5. Goal to be met by: 05/07/18 Progress towards goal: Partially Met Goal #4: Pt to increase RUE shoulder flexion to 155 of AROM with stretching. Goal to be met by: 05/07/18 (met, in supine) Progress towards goal: Partially Met Credit Collections Rep Goals Goal #1: Pt pain to decrease to 0/10 with AROM of RUE. Goal to be met by: 05/21/18 Progress towards goal: Progressing Goal #2: Pt to increase shoulder abduction to 120 deg. Goal to be met by: 05/21/18 Progress towards goal: Progressing Goal #3: Pt to increase strength of RUE to 4+/5 to increase reaching. Goal to be met by: 05/21/18 Progress towards goal: Progressing Goal #4: Pt to increase RUE shoulder AROM to WFL without stretching. Goal to be met by: 05/21/18 Progress towards goal: Progressing Plan Dates of Credit Collections Rep Goals: 05/21/18 Expiration date of current Insurance Approval:: 05/21/18 PLAN: Continue per POC to max functional UE AROM/strength.
--- NOTE | 2018-05-07 08:28 | RS.OTDNOTE ---
Subjective Date of Note: 05/03/18 Visit #: 20 Number of visits approved by Insurance: 30 Date of Evaluation: 03/14/18 Payer Source: MEDICARE Treatment Diagnosis: M75.111 Incomplete RCT with Rupture of Right Shoulder *Precautions: Uses a cane, HTN. Current Complaints/Gains: Pt states UE feels better and "almost back to where we were before". States he knows he can't miss therapy again. States some c/o stiffness but no c/o pain upon entering therapy and that he has been applying CP for extended time at home. Pt has noted "slip" with FF in supine position this date, MD office notified with miriam daniels. Pt instructed to continue to perform isometric ex's at home. Pain Assessment - Pain Description Pain Description: Tightness, Dull Pain Location: Right UE shoulder Pain Description: soreness Modalities - Treatment Modality: Ultrasound Parameters/Method Applied: 1.5w/cm2 x 12 mins to shoulder Treatment Area: shoulder Patient Position: Sitting - Hot Pack/Cryotherapy Treatment: Hot Pack, Cryotherapy Interventions - Exercise/Activities Exercise/Activities/Manual Therapy: Manual therapy to shoulder, scapula, and deltoids. PROM/gentle stretching in sitting/supine position shoulder flexion/ extension, abd/adduction and IR/ER. AROM and A/AROM performed in sitting positon with sc and HEP instruction continued. Isometric ex x4,10/2. Finger ladder x 3 shoulder flexion & abduction. B UE jonatan system. Wall stretches, ball on the wall, shelf AROM of shoulder flexion/abd, sitting cane ex's and shoulder protraction performed along with body blade x 1 mins. Continued education on HEP/PRE's. Pt also performed prone RTC series ex for shoulder stabilitization. HOME EXERCISE PROGRAM: ice to right shoulder, medication for inflammation, AROM shoulder elevation/retraction and codman's exercise. Educated patient to complete isometric exercises and sc A/AROM at home to decrease the pain and strengthen UE. - Objective Findings Objective Findings:: Pt with pronounced "clicking" in UE this date. Pt ed to perform isometric ex's several times daily at home. MD office called with miriam daniels. - Charges Timed Code Treatment Minutes: 55 Total Treatment Time: 62 Procedures billed for this date of service:: CP US Ex2 Assessment Patient Education: Education of diagnosis, Body/Joint mechanics, Home Exercise Program, Home Safety, Activity Modification, Education of Plan of Care Patient demonstrates compliance with HEP?: Yes Short Term Goals Goal #1: Pt pain to decrease to 0-1/10 with AROM of RUE. Goal to be met by: 05/07/18 Progress towards goal: Progressing Goal #2: Pt to be independent with Home exercise program. Goal to be met by: 05/07/18 (PREs) Progress towards goal: Progressing Goal #3: Pt to increase strength of RUE to 4/5. Goal to be met by: 05/07/18 Progress towards goal: Partially Met Goal #4: Pt to increase RUE shoulder flexion to 155 of AROM with stretching. Goal to be met by: 05/07/18 (met, in supine) Progress towards goal: Partially Met Senior Living Goals Goal #1: Pt pain to decrease to 0/10 with AROM of RUE. Goal to be met by: 05/21/18 Progress towards goal: Progressing Goal #2: Pt to increase shoulder abduction to 120 deg. Goal to be met by: 05/21/18 Progress towards goal: Progressing Goal #3: Pt to increase strength of RUE to 4+/5 to increase reaching. Goal to be met by: 05/21/18 Progress towards goal: Progressing Goal #4: Pt to increase RUE shoulder AROM to WFL without stretching. Goal to be met by: 05/21/18 Progress towards goal: Progressing Plan Dates of Senior Living Goals: 05/21/18 Expiration date of current Insurance Approval:: 05/21/18 PLAN: Cont per POC/isometric ex's
--- NOTE | 2018-05-08 08:14 | RS.OTDNOTE ---
Subjective Date of Note: 05/07/18 Visit #: 21 Number of visits approved by Insurance: 30 Date of Evaluation: 03/14/18 Payer Source: MEDICARE Treatment Diagnosis: M75.111 Incomplete RCT with Rupture of Right Shoulder *Precautions: Uses a cane, HTN. Current Complaints/Gains: Pt states less c/o "clunking" over the wknd and had only small clicks today during tx. States good understanding of HEP/isometric ex's to perform at home several times daily. States pain and points down middle deltoid and rates at 6 prior to tx with decline to 2 following tx. Pain Assessment - Pain Description Pain Description: Tightness, Dull Pain Location: Right UE shoulder Pain Description: soreness Current Pain Intensity: 2 Worst Pain Intensity: 6 Modalities - Treatment Modality: Ultrasound Parameters/Method Applied: 1.5w/cm2 x 12 mins to deltoids and anterior shoulder Patient Position: Sitting - Hot Pack/Cryotherapy Treatment: Hot Pack, Cryotherapy Interventions - Exercise/Activities Exercise/Activities/Manual Therapy: Manual therapy to shoulder, scapula, and deltoids. PROM/gentle stretching in sitting position shoulder flexion/extension , abd/adduction and IR/ER. Isometric ex x4,10/2. Finger ladder x 3 shoulder flexion & abduction. B UE jonatan system. Wall stretches, ball on the wall, shelf AROM of shoulder performed along with continued education on HEP/PRE's. Pt also performed prone RTC series with 1-2# hand weight. HOME EXERCISE PROGRAM: ice to right shoulder, medication for inflammation, AROM shoulder elevation/retraction and codman's exercise. Educated patient to complete isometric exercises and sc A/AROM at home to decrease the pain and strengthen UE. - Objective Findings Objective Findings:: Pt with pronounced "clicking" in UE this date. Pt ed to perform isometric ex's several times daily at home. MD office called with miriam left. - Charges Timed Code Treatment Minutes: 44 Total Treatment Time: 62 Procedures billed for this date of service:: HP US EX2 Assessment Patient Education: Education of diagnosis, Body/Joint mechanics, Home Exercise Program, Home Safety, Activity Modification, Education of Plan of Care Patient demonstrates compliance with HEP?: Yes Short Term Goals Goal #1: Pt pain to decrease to 0-1/10 with AROM of RUE. Goal to be met by: 05/07/18 (2-6/10) Progress towards goal: Progressing Goal #2: Pt to be independent with Home exercise program. Goal to be met by: 05/07/18 (PREs) Progress towards goal: Partially Met Goal #3: Pt to increase strength of RUE to 4/5. Goal to be met by: 05/07/18 (4-4/5) Progress towards goal: Partially Met Goal #4: Pt to increase RUE shoulder flexion to 155 of AROM with stretching. Goal to be met by: 05/07/18 (met, in supine) Progress towards goal: Partially Met Stove Tender Goals Goal #1: Pt pain to decrease to 0/10 with AROM of RUE. Goal to be met by: 05/21/18 Progress towards goal: Progressing Goal #2: Pt to increase shoulder abduction to 120 deg. Goal to be met by: 05/21/18 Progress towards goal: Progressing Goal #3: Pt to increase strength of RUE to 4+/5 to increase reaching. Goal to be met by: 05/21/18 Progress towards goal: Progressing Goal #4: Pt to increase RUE shoulder AROM to WFL without stretching. Goal to be met by: 05/21/18 Progress towards goal: Progressing Plan Dates of Stove Tender Goals: 05/21/18 Expiration date of current Insurance Approval:: 05/21/18 PLAN: Continue per POC to max FX UE AROM/strength.
--- NOTE | 2018-05-09 15:58 | RS.OTDNOTE ---
Subjective Date of Note: 05/09/18 Visit #: 22 Number of visits approved by Insurance: 30 Date of Evaluation: 03/14/18 Payer Source: MEDICARE Treatment Diagnosis: M75.111 Incomplete RCT with Rupture of Right Shoulder *Precautions: Uses a cane, HTN. Current Complaints/Gains: Pt states no to min "clicking" in UE. States pain in deltoids is gone and no c/o pectoral muscle pain/tightness. Pain Assessment - Pain Description Pain Description: Tightness, Dull Pain Location: Right UE shoulder Pain Description: soreness Modalities - Treatment Modality: Ultrasound Parameters/Method Applied: 1.5w/cm2 x 12 mins to trapezius/infraspinatus Patient Position: Sitting - Hot Pack/Cryotherapy Treatment: Hot Pack, Cryotherapy Interventions - Exercise/Activities Exercise/Activities/Manual Therapy: Manual therapy to shoulder, scapula, and deltoids. PROM/gentle stretching in sitting/supine position shoulder flexion/ extension, abd/adduction and IR/ER. Isometric ex x4,10/2. Finger ladder x 3 shoulder flexion & abduction. B UE jonatan system. Wall stretches/table-top ER , ball on the wall, shelf AROM of shoulder performed along with continued education on HEP/PRE's. Pt also performed prone RTC series with 1-2# hand weights and blue t-band push-outs. Restorator x 10 mins. HOME EXERCISE PROGRAM: ice to right shoulder, medication for inflammation, AROM shoulder elevation/retraction and codman's exercise. Educated patient to complete isometric exercises and sc A/AROM at home to decrease the pain and strengthen UE. - Objective Findings Objective Findings:: Pt with pronounced "clicking" in UE this date. Pt ed to perform isometric ex's several times daily at home. office called with miriam daniels. - Charges Timed Code Treatment Minutes: 65 Total Treatment Time: 74 Procedures billed for this date of service:: CP US EX2 ACT Assessment Patient Education: Education of diagnosis, Body/Joint mechanics, Home Exercise Program, Home Safety, Activity Modification, Education of Plan of Care Patient demonstrates compliance with HEP?: Yes Short Term Goals Goal #1: Pt pain to decrease to 0-1/10 with AROM of RUE. Goal to be met by: 05/07/18 (2-6/10) Progress towards goal: Progressing Goal #2: Pt to be independent with Home exercise program. Goal to be met by: 05/07/18 (PREs) Progress towards goal: Partially Met Goal #3: Pt to increase strength of RUE to 4/5. Goal to be met by: 05/07/18 (4-4/5) Progress towards goal: Partially Met Goal #4: Pt to increase RUE shoulder flexion to 155 of AROM with stretching. Goal to be met by: 05/07/18 (met, in supine) Progress towards goal: Partially Met Half-Way Goals Goal #1: Pt pain to decrease to 0/10 with AROM of RUE. Goal to be met by: 05/21/18 Progress towards goal: Progressing Goal #2: Pt to increase shoulder abduction to 120 deg. Goal to be met by: 05/21/18 Progress towards goal: Progressing Goal #3: Pt to increase strength of RUE to 4+/5 to increase reaching. Goal to be met by: 05/21/18 Progress towards goal: Progressing Goal #4: Pt to increase RUE shoulder AROM to WFL without stretching. Goal to be met by: 05/21/18 Progress towards goal: Progressing Plan Dates of Universal Winding Machine Operator Goals: 05/21/18 Expiration date of current Insurance Approval:: 05/21/18 PLAN: Continue per POC to max functional UE AROM with decreased c/o pain and increased strength.
== END 2018-05-10 23:59 ==
PROVIDERS: ATTEND Orthopaedic Surgery
DX: M75.111 Incomplete rotator cuff tear or rupture of right shoulder, not specified as traumatic (principal)

== ENCOUNTER 2018-05-11 13:09 | Outpatient (RCR) ==
--- NOTE | 2018-05-11 14:19 | RS.OTDNOTE ---
Subjective Date of Note: 05/11/18 Visit #: 23 Number of visits approved by Insurance: 30 Date of Evaluation: 03/14/18 Payer Source: MEDICARE Treatment Diagnosis: M75.111 Incomplete RCT with Rupture of Right Shoulder *Precautions: Uses a cane, HTN. Current Complaints/Gains: Pt states no c/o shoulder pain but has c/o hand " nerve pain" in digits 4-5. States good compliance with isometric ex's. States UE AROM/wall walking in shower. Pain Assessment - Pain Description Pain Location: Right UE shoulder Pain Description: soreness Modalities - Treatment Modality: Ultrasound Parameters/Method Applied: 1.5w/cm2 x 12 mins to traps. Patient Position: Sitting - Hot Pack/Cryotherapy Treatment: Hot Pack, Cryotherapy Interventions - Exercise/Activities Exercise/Activities/Manual Therapy: Manual therapy to shoulder, scapula, and deltoids. PROM/gentle stretching in sitting/supine position shoulder flexion/ extension, abd/adduction and IR/ER. Isometric ex x4,10/3 with A of therapist and wall. Wall stretches/table-top ER along with continued education on HEP/PRE' s. Pt also performed prone RTC series with 1# hand weight. HOME EXERCISE PROGRAM: ice to right shoulder, medication for inflammation, AROM shoulder elevation/retraction and codman's exercise. Educated patient to complete isometric exercises and sc A/AROM at home to decrease the pain and strengthen UE. - Objective Findings Objective Findings:: Pt with pronounced "clicking" in UE this date. Pt ed to perform isometric ex's several times daily at home. MD office called with miriam left. - Charges Timed Code Treatment Minutes: 48 Total Treatment Time: 62 Procedures billed for this date of service:: HP US EX2 Assessment Patient Education: Education of diagnosis, Body/Joint mechanics, Home Exercise Program, Home Safety, Activity Modification, Education of Plan of Care Patient demonstrates compliance with HEP?: Yes Short Term Goals Goal #1: Pt pain to decrease to 0-1/10 with AROM of RUE. Goal to be met by: 05/07/18 (2-6/10) Progress towards goal: Progressing Goal #2: Pt to be independent with Home exercise program. Goal to be met by: 05/07/18 (PREs) Progress towards goal: Partially Met Goal #3: Pt to increase strength of RUE to 4/5. Goal to be met by: 05/07/18 (4-4/5) Progress towards goal: Partially Met Goal #4: Pt to increase RUE shoulder flexion to 155 of AROM with stretching. Goal to be met by: 05/07/18 (met, in supine) Progress towards goal: Partially Met [facility] Goals Goal #1: Pt pain to decrease to 0/10 with AROM of RUE. Goal to be met by: 05/21/18 Progress towards goal: Progressing Goal #2: Pt to increase shoulder abduction to 120 deg. Goal to be met by: 05/21/18 Progress towards goal: Progressing Goal #3: Pt to increase strength of RUE to 4+/5 to increase reaching. Goal to be met by: 05/21/18 Progress towards goal: Progressing Goal #4: Pt to increase RUE shoulder AROM to WFL without stretching. Goal to be met by: 05/21/18 Progress towards goal: Progressing Plan Dates of Fdc Goals: 05/21/18 Expiration date of current Insurance Approval:: 05/21/18 PLAN: Continue per POC to max functional UE AROM/strength with decreased c/o pain.
--- NOTE | 2018-05-14 13:01 | RS.OTCXNS ---
OT Case Note Date of Scheduled Appointment: 05/14/18 Reason for Cancel/NS: Pt called and cancelled saying he was going to the surgeon tomorrow.
--- NOTE | 2018-05-16 08:26 | RS.OTCNOTE ---
OT Case Note Date of Note: 05/16/18 Title: Stop OT for at least 2 weeks Note: Pt called in PM on 05/15/18 regarding going for an MRI in a few days. Pt is to put OT on hold for 2 weeks until results of the MRI. Number of visits approved by Insurance: 7 Expiration date of current Insurance Approval:: 05/21/18
== END 2018-06-10 23:59 ==
PROVIDERS: ATTEND Orthopaedic Surgery
DX: M75.111 Incomplete rotator cuff tear or rupture of right shoulder, not specified as traumatic (principal)

== ENCOUNTER 2018-06-08 14:10 | Outpatient (RCR) | END 2018-06-10 23:59 | PROVIDERS: ATTEND Orthopaedic Surgery | DX: M75.111 Incomplete rotator cuff tear or rupture of right shoulder, not specified as traumatic (principal) ==

== ENCOUNTER 2018-07-04 15:00 | Outpatient (RCR) ==
--- NOTE | 2018-06-11 13:02 | RS.OTCXNS ---
OT Case Note Date of Scheduled Appointment: 06/11/18 Type: Cancel (Spouse phoned therapy and cancelled tx, no reason given.)
--- NOTE | 2018-06-14 08:35 | RS.OTDNOTE ---
Subjective Date of Note: 06/13/18 Visit #: 25 Number of visits approved by Insurance: 35 Date of Evaluation: 03/14/18 Payer Source: MEDICARE Treatment Diagnosis: M75.111 Incomplete RCT with Rupture of Right Shoulder *Precautions: Uses a cane, HTN. Current Complaints/Gains: Pt states he has not been performing actions over his head with his (R) UE. States popping in his (L) shoulder at times but ROM is "fine" States good compliance with performing isometric ex's and demo x5 for therapist. Pain Assessment - Pain Description Pain Description: Dull, Aching Pain Location: Right UE shoulder Pain Description: soreness Current Pain Intensity: 0 Worst Pain Intensity: 3 Modalities - Treatment Modality: Ultrasound Parameters/Method Applied: 1.5w/cm2 x 12 mins to anterior/posterior shoulder - Hot Pack/Cryotherapy Treatment: Cryotherapy (CP following tx with continued instruction for home use. ) Interventions - Exercise/Activities Exercise/Activities/Manual Therapy: Manual/trigger point therapy performed to anterior shoulder. Isometric ex instructions/purpose with pt performing each 15 /2 of shoulder flexion/extension, IR/ER, abduction/adduction, along with shoulder clock ex's, codmans and protraction/retraction. HOME EXERCISE PROGRAM: OT reviewing isometric exercises with patient so he can do them at home. (pushing fist into wall hold 5 sec. x 15 reps, shoulder extension hold 5 sec. x 15 reps, internal rotation hold 5 sec. x 15 reps, external rotation hold 5 sec against wall. Bilateral shoulder adduction hold 5 sec. x 15 reps. - Objective Findings Objective Findings:: Pt with pronounced "clicking" in UE this date. Pt ed to perform isometric ex's several times daily at home. office called with miriam daniels. - Charges Timed Code Treatment Minutes: 46 Total Treatment Time: 58 Procedures billed for this date of service:: CP US EX2 Assessment Patient Education: Education of diagnosis, Body/Joint mechanics, Home Exercise Program, Home Safety, Activity Modification, Education of Plan of Care Patient demonstrates compliance with HEP?: Yes Short Term Goals Goal #1: Pt pain to decrease to 0-1/10 with AROM of RUE. Goal to be met by: 06/22/18 (0-3) Progress towards goal: Progressing Goal #2: Pt to be independent with Home exercise program. Goal to be met by: 04/12/19 Progress towards goal: Progressing Goal #3: Pt to increase strength of RUE to 4/5. Goal to be met by: 06/22/18 Progress towards goal: Progressing Goal #4: Pt to increase RUE shoulder flexion to 155 of AROM with stretching. Goal to be met by: 06/22/18 Progress towards goal: Progressing Longterm Goals Goal #1: Pt pain to decrease to 0/10 with AROM of RUE. Goal to be met by: 08/10/18 Progress towards goal: Progressing Goal #2: Pt to increase RUE shoulder ext. Rotation to 90 deg. Goal to be met by: 08/10/18 Progress towards goal: Progressing Goal #3: Pt to increase strength of RUE to 4+/5 to increase reaching. Goal to be met by: 08/10/18 Progress towards goal: Progressing Goal #4: Pt to increase RUE shoulder AROM to WFL without stretching. Goal to be met by: 08/10/18 Progress towards goal: Progressing Plan Dates of Longterm Goals: 08/10/18 Expiration date of current Insurance Approval:: 08/10/18 PLAN: Continue per POC to max functional UE AROM and strength.
--- NOTE | 2018-06-15 16:18 | RS.OTDNOTE ---
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 Current Complaints/Gains: Pain and strength improving. Pt states pain with isometric ER and codman's ex's but states pain at 3-4 at worse with decrease after a few ex's. States good compliance with HEP of isometric ex's and applying a CP several times daily. Pain Assessment - Pain Description Pain Description: Dull, Aching Pain Location: Right UE shoulder Pain Description: soreness Current Pain Intensity: 0-1 Worst Pain Intensity: 3-4 Modalities - Treatment Modality: Ultrasound Parameters/Method Applied: 1.5w/cm2 x 12 mins to anterior/posterior shoulder Patient Position: Sitting - Hot Pack/Cryotherapy Treatment: Hot Pack, Cryotherapy Comments:: HP prior to TE with CP applied following tx Interventions - Exercise/Activities Exercise/Activities/Manual Therapy: Manual/trigger point therapy performed to anterior shoulder. Isometric ex instructions/purpose with pt performing each 15 /2 of shoulder flexion/extension, IR/ER, abduction/adduction, along with shoulder clock ex's, codmans and protraction/retraction. HOME EXERCISE PROGRAM: OT reviewing isometric exercises with patient so he can do them at home. (pushing fist into wall hold 5 sec. x 15 reps, shoulder extension hold 5 sec. x 15 reps, internal rotation hold 5 sec. x 15 reps, external rotation hold 5 sec against wall. Bilateral shoulder adduction hold 5 sec. x 15 reps. - Charges Timed Code Treatment Minutes: 46 Total Treatment Time: 61 Procedures billed for this date of service:: CP US EX2 Assessment Patient Education: Education of diagnosis, Body/Joint mechanics, Home Exercise Program, Home Safety, Activity Modification, Education of Plan of Care Patient demonstrates compliance with HEP?: Yes Short Term Goals Goal #1: Pt pain to decrease to 0-1/10 with AROM of RUE. Goal to be met by: 06/22/18 (0-3) Progress towards goal: Progressing Goal #2: Pt to be independent with Home exercise program. Goal to be met by: 06/22/18 Progress towards goal: Progressing Goal #3: Pt to increase strength of RUE to 4/5. Goal to be met by: 06/22/18 Progress towards goal: Progressing Goal #4: Pt to increase RUE shoulder flexion to 155 of AROM with stretching. Goal to be met by: 06/22/18 Progress towards goal: Progressing Returns Processor Goals Goal #1: Pt pain to decrease to 0/10 with AROM of RUE. Goal to be met by: 08/10/18 Progress towards goal: Progressing Goal #2: Pt to increase RUE shoulder ext. Rotation to 90 deg. Goal to be met by: 08/10/18 Progress towards goal: Progressing Goal #3: Pt to increase strength of RUE to 4+/5 to increase reaching. Goal to be met by: 08/10/18 Progress towards goal: Progressing Goal #4: Pt to increase RUE shoulder AROM to WFL without stretching. Goal to be met by: 08/10/18 Progress towards goal: Progressing Plan Dates of Skilled Nursing Goals: 08/10/18 Expiration date of current Insurance Approval:: 08/10/18 PLAN: Continue per POC to max functional UE AROM and strength.
--- NOTE | 2018-06-18 16:31 | RS.OTDNOTE ---
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 Current Complaints/Gains: Pt reports that he has not been doing anything but the isometrics. Pt reports pain during Codman's exercise and was asked to stop Codman's due to the increased pain. Pain Assessment - Pain Description Pain Location: Right UE shoulder Pain Description: Pt reported no pain at the beginning of treatment,. Current Pain Intensity: 0 Worst Pain Intensity: 3 Other comments regarding pain:: Pt did report pain with External rotation in supine and patient reported the pain decreased following the contract/relax exercises to the LUE shoulder. Modalities - Treatment Modality: Ultrasound Parameters/Method Applied: .4 w/cm 2 for 12 minutes to the posterior and anterior Left shoulder. Treatment Area: LUE anterior and posterior shoulder. Patient Position: Sitting - Hot Pack/Cryotherapy Treatment: Hot Pack, Cryotherapy Interventions - Exercise/Activities Exercise/Activities/Manual Therapy: Manual/trigger point therapy performed to anterior shoulder. Isometric ex instructions/purpose with pt performing each 10 x 2 sets of shoulder flexion/extension, IR/ER, abduction/adduction. HOME EXERCISE PROGRAM: OT reviewing isometric exercises with patient so he can do them at home. (pushing fist into wall hold 5 sec. x 15 reps, shoulder extension hold 5 sec. x 15 reps, internal rotation hold 5 sec. x 15 reps, external rotation hold 5 sec against wall. Bilateral shoulder adduction hold 5 sec. x 15 reps. - Objective Findings Objective Findings:: Pt reported his pain has been decreasing. Pt reports he is getting stronger. Pt had pain during Ext. Rot. PROM and contract/relax exercises. Pt reported pain went from a 3 to a 1. Pt reported he is feeling better about his shoulder. Pt is gaining in strength. He is functioning in a pain free AROM at all times. - Charges Timed Code Treatment Minutes: 49 Total Treatment Time: 69 Procedures billed for this date of service:: HP, EX x 2, US, CP Assessment Assessment: Pt says he is improving in strength of the LUE shoulder. He believes the isometric exercises are helping him. He reports no clunking however he has not been completing exercises above his head at this time. Pt is to continue another 3-5 treatments with mostly isometric exercises to get a balance in the RCT repair. Patient demonstrates compliance with HEP?: Yes Short Term Goals Goal #1: Pt pain to decrease to 0-1/10 with AROM of RUE. Goal to be met by: 06/22/18 (0-3) Progress towards goal: Progressing Goal #2: Pt to be independent with Home exercise program. Goal to be met by: 06/22/18 Progress towards goal: Progressing Goal #3: Pt to increase strength of RUE to 4/5. Goal to be met by: 06/22/18 Progress towards goal: Progressing Goal #4: Pt to increase RUE shoulder flexion to 155 of AROM with stretching. Goal to be met by: 06/22/18 Progress towards goal: Progressing Dining Services Manager Goals Goal #1: Pt pain to decrease to 0/10 with AROM of RUE. Goal to be met by: 08/10/18 Progress towards goal: Progressing Goal #2: Pt to increase RUE shoulder ext. Rotation to 90 deg. Goal to be met by: 08/10/18 Progress towards goal: Progressing Goal #3: Pt to increase strength of RUE to 4+/5 to increase reaching. Goal to be met by: 08/10/18 Progress towards goal: Progressing Goal #4: Pt to increase RUE shoulder AROM to WFL without stretching. Goal to be met by: 08/10/18 Progress towards goal: Progressing Plan Dates of [facility] Goals: 08/10/18 Expiration date of current Insurance Approval:: 08/10/18 PLAN: OT to treat 3Xwk x 4 weeks to improve balance of RCT repair and strengthen to return patient to increased functional occupational performance .
--- NOTE | 2018-06-20 16:31 | RS.OTDNOTE ---
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 Current Complaints/Gains: Pt has pain of 6/10 with external rotation of RUE while in supine at end of range. Pt tolerated Ultrasound to RUE shoulder with arm in EXT. Rot. tolerating contract relax x 5 reps. Pt was able to be pushed to full PROM. Pt tolerated sitting with US to serratus and serratus posterior superior while completing horizontal adduction with RUE. Pt reported it was tight at the beginning and then it loosened up. Pt pain in Ext. Rot. was lessening the more the ext. Rot. was completed with Ultrasound. Pain Assessment - Pain Description Pain Description: Dull, Aching Pain Location: Right UE shoulder Pain Description: Pt reported no pain at the beginning of treatment,. Current Pain Intensity: 0 Worst Pain Intensity: 6 Other comments regarding pain:: Pt reported pain with ext. rotation only today. Pt reported that it is decreasing. Pt came in to therapy without any pain. Modalities - Treatment Modality: Ultrasound Parameters/Method Applied: .4 w/cm2 for 12 minutes to anterior RUE shoulder while in Ext. Rot. and then moved to sitting and US to the serratus posterior while in horizontal adduction for 4 minutes. Treatment Area: RUE anterior shoulder then moved to sitting posterior serratus. Patient Position: Supine - Hot Pack/Cryotherapy Treatment: Cryotherapy Interventions - Exercise/Activities Exercise/Activities/Manual Therapy: Isometric ex instructions/purpose with pt performing each 10 x 2 sets of shoulder flexion/extension, IR/ER, abduction/ adduction. Pt tolerated US to the anterior RUE shoulder. HOME EXERCISE PROGRAM: OT reviewing isometric exercises with patient so he can do them at home. (pushing fist into wall hold 5 sec. x 15 reps, shoulder extension hold 5 sec. x 15 reps, internal rotation hold 5 sec. x 15 reps, external rotation hold 5 sec against wall. Bilateral shoulder adduction hold 5 sec. x 15 reps. Table top stretch was added to place him in external rotation gradually. - Objective Findings Objective Findings:: Pt reported his pain has been decreasing. Pt reports he is getting stronger. Pt had pain during Ext. Rot. PROM and contract/relax exercises. Pt reported pain went from a 3 to a 1. Pt reported he is feeling better about his shoulder. Pt is gaining in strength. He is functioning in a pain free AROM at all times. - Charges Timed Code Treatment Minutes: 49 Total Treatment Time: 75 Procedures billed for this date of service:: HP, EX x 2, US, CP Assessment Assessment: Pt reports his pain has decreased and his strength is really increasing. Pt reports he feels he is improving. Patient demonstrates compliance with HEP?: Yes Short Term Goals Goal #1: Pt pain to decrease to 0-1/10 with AROM of RUE. Goal to be met by: 06/22/18 (0-3) Progress towards goal: Progressing Goal #2: Pt to be independent with Home exercise program. Goal to be met by: 06/22/18 Progress towards goal: Progressing Goal #3: Pt to increase strength of RUE to 4/5. Goal to be met by: 06/22/18 Progress towards goal: Progressing Goal #4: Pt to increase RUE shoulder flexion to 155 of AROM with stretching. Goal to be met by: 06/22/18 Progress towards goal: Progressing Negative Notcher Goals Goal #1: Pt pain to decrease to 0/10 with AROM of RUE. Goal to be met by: 08/10/18 Progress towards goal: Progressing Goal #2: Pt to increase RUE shoulder ext. Rotation to 90 deg. Goal to be met by: 08/10/18 Progress towards goal: Progressing Goal #3: Pt to increase strength of RUE to 4+/5 to increase reaching. Goal to be met by: 08/10/18 Progress towards goal: Progressing Goal #4: Pt to increase RUE shoulder AROM to WFL without stretching. Goal to be met by: 08/10/18 Progress towards goal: Progressing Plan Dates of Negative Notcher Goals: 08/10/18 Expiration date of current Insurance Approval:: 08/10/18 PLAN: Pt participating in isometrics for RUE shoulder to make stronger and more stable and to decrease the shoulder pain. Pt to increase AROM once pain has decreased.
--- NOTE | 2018-06-22 16:37 | RS.OTDNOTE ---
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 Current Complaints/Gains: Pt complains of some tightness in RUE posterior scapula in External Rotation. Pt has some tenderness of 1-2/10 with external rotation. Pain Assessment - Pain Description Pain Description: Tightness, Dull Pain Location: Right UE shoulder Pain Description: Pt reported no pain at the beginning of treatment,. Current Pain Intensity: 0 Worst Pain Intensity: 2-3 Other comments regarding pain:: Pt reported he is not hurting as much with External Rotation as he did earlier this week. Modalities - Treatment Modality: Ultrasound Parameters/Method Applied: .4 w/cm2 for 10 minutes. Treatment Area: RUE bicep and Brachioradialis in External rotation. Patient Position: Supine Interventions - Exercise/Activities Exercise/Activities/Manual Therapy: Isometric ex instructions/purpose with pt performing each 10 x 2 sets of shoulder flexion/extension, IR/ER, abduction/ adduction. Pt tolerated US to the anterior RUE shoulder while placed in Ext. Rot. Pt then tolerated manual therapy to the posterior scapula while supine. Tender point releases. Pt then positioned on the left side and glides as well as scapular release were completed to increase ext. Rot. Pt then moved to supine position and was able to complete full Ext. Rotation with mild tightness. Pt then tolerated Cold pack for 10 minutes. HOME EXERCISE PROGRAM: OT reviewing isometric exercises with patient so he can do them at home. (pushing fist into wall hold 5 sec. x 15 reps, shoulder extension hold 5 sec. x 15 reps, internal rotation hold 5 sec. x 15 reps, external rotation hold 5 sec against wall. Bilateral shoulder adduction hold 5 sec. x 15 reps. Table top stretch was added to place him in external rotation gradually. Pt encouraged to ice after exercises. - Objective Findings Objective Findings:: Pt reported his pain has been decreasing. Pt reports he is getting stronger. Pt had 1-2 pain during Ext. Rot. PROM and contract/relax exercises during Ultrasound while in supine position. Pt reported he is not hurting with external rotation today like on Monday. Pt is feeling better about his shoulder. Pt is gaining in strength. He is functioning in a pain free AROM at all times. - Charges Timed Code Treatment Minutes: 60 Total Treatment Time: 80 Procedures billed for this date of service:: HP, EX x 2, US, MT, CP Assessment Assessment: Pt is improving with pain at 1-2/10 with end range of Ext. Rot. Pt is improving in strength of RUE with isometric exercises. Pt is happy with accomplishment. Patient demonstrates compliance with HEP?: Yes Short Term Goals Goal #1: Pt pain to decrease to 0-1/10 with AROM of RUE. Goal to be met by: 06/22/18 (0-3) Progress towards goal: Progressing Goal #2: Pt to be independent with Home exercise program. Goal to be met by: 06/22/18 Progress towards goal: Progressing Goal #3: Pt to increase strength of RUE to 4/5. Goal to be met by: 06/22/18 Progress towards goal: Progressing Goal #4: Pt to increase RUE shoulder flexion to 155 of AROM with stretching. Goal to be met by: 06/22/18 Progress towards goal: Progressing Alf Goals Goal #1: Pt pain to decrease to 0/10 with AROM of RUE. Goal to be met by: 08/10/18 Progress towards goal: Progressing Goal #2: Pt to increase RUE shoulder ext. Rotation to 90 deg. Goal to be met by: 08/10/18 Progress towards goal: Progressing Goal #3: Pt to increase strength of RUE to 4+/5 to increase reaching. Goal to be met by: 08/10/18 Progress towards goal: Progressing Goal #4: Pt to increase RUE shoulder AROM to WFL without stretching. Goal to be met by: 08/10/18 Progress towards goal: Progressing Plan Dates of Alliances Consultant Goals: 08/10/18 Expiration date of current Insurance Approval:: 08/10/18 PLAN: OT to treat 3X week x 4 weeks. OT to treat with isometric exercises and beginning progressive Resistive Exercises to RUE shoulder.
--- NOTE | 2018-06-26 13:45 | RS.OTDNOTE ---
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 Current Complaints/Gains: Pt pleased with progress at this time. States pain 0- 3/10 but states mostly 0. States no popping or "clunking" feeling. States good compliance with HEP of isometric ex's and applying a CP several times daily. Pain Assessment - Pain Description Pain Description: Tightness, Dull Pain Location: Right UE shoulder Pain Description: Pt reported no pain at the beginning of treatment,. Current Pain Intensity: 0 Worst Pain Intensity: 3 Modalities - Treatment Modality: Ultrasound Parameters/Method Applied: .4-.5w/cm2 x 12 mins to trapezius/supraspinatus Patient Position: Sitting - Hot Pack/Cryotherapy Treatment: Cryotherapy Comments:: CP x10 mins Interventions - Exercise/Activities Exercise/Activities/Manual Therapy: Isometric ex performed at wall 15/2 of shoulder flexion/extension, IR/ER, abduction/adduction. Pt tolerated US to the anterior RUE shoulder while placed in ER/supine position. MT/trigger point release performed with ed for use of tennis ball at home. Pt in supine positon for PROM/gentle stretching progressed to cane A/AROM 5-10/1 and FF codman's ex along with finger ladder in flexion and abduction ranges. HOME EXERCISE PROGRAM: Continued ed for isometric ex's and increasing to cane A/ AROM. - Objective Findings Objective Findings:: Pt reports pain at 0 during all tx with no clunking noted. Pt demo decreased tenderness and tightness in scapula/trapezius. - Charges Timed Code Treatment Minutes: 58 Total Treatment Time: 62 Procedures billed for this date of service:: CP US EX2 Assessment Patient Education: Education of diagnosis, Body/Joint mechanics, Home Exercise Program, Home Safety, Activity Modification, Education of Plan of Care Patient demonstrates compliance with HEP?: Yes Short Term Goals Goal #1: Pt pain to decrease to 0-1/10 with AROM of RUE. Goal to be met by: 06/22/18 (0-3) Progress towards goal: Progressing Goal #2: Pt to be independent with Home exercise program. Goal to be met by: 06/22/18 Progress towards goal: Partially Met Comments: Met with isometric ex Goal #3: Pt to increase strength of RUE to 4/5. Goal to be met by: 06/22/18 Progress towards goal: Met Goal #4: Pt to increase RUE shoulder flexion to 155 of AROM with stretching. 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 Goal to be met by: 08/10/18 Progress towards goal: Progressing Goal #2: Pt to increase RUE shoulder ext. Rotation to 90 deg. Goal to be met by: 08/10/18 Progress towards goal: Progressing Goal #3: Pt to increase strength of RUE to 4+/5 to increase reaching. Goal to be met by: 08/10/18 Progress towards goal: Progressing Goal #4: Pt to increase RUE shoulder AROM to WFL without stretching. 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
--- NOTE | 2018-06-28 08:42 | RS.OTDNOTE ---
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 Current Complaints/Gains: Pt continues stating strength and pain improvement. States good compliance with HEP. States he is decreasing his pain medicine with the use of his Rx medical marijuana. Also states no c/o "cluncking" during TE and that performing isometric ex's on his (R) UE and decreased c/o pain and clunking/popping of shoulder. Pain Assessment - Pain Description Pain Description: Tightness, Dull Pain Location: Right UE shoulder Pain Description: Pt reported no pain at the beginning/end of treatment Current Pain Intensity: 0 Worst Pain Intensity: 1-2 Modalities - Treatment Modality: Ultrasound Parameters/Method Applied: .5w/cm2, pulsed at 50% with UE positioned in ER with gentle stretching performed during and following US tx. Patient Position: Sitting - Hot Pack/Cryotherapy Treatment: Cryotherapy Comments:: Following tx x 10 mins Interventions - Exercise/Activities Exercise/Activities/Manual Therapy: Isometric ex performed at wall 15/2 of shoulder flexion/extension, IR/ER, abduction/adduction. Pt tolerated US to the anterior RUE shoulder while placed in ER/sitting position. MT/trigger point release performed with ed for use of tennis ball at home. Pt in supine positon for PROM/gentle stretching progressed to cane A/AROM 5-10/1 and FF codman's ex along with finger ladder in flexion and abduction ranges. 1# hand weight RTC series ex's performed 12/11 with instruction for PRE's at home and during OT tx. HOME EXERCISE PROGRAM: Continued ed for isometric ex's and increasing to cane A/ AROM and light resistence RTC series ex's with use of water bottle or light can. - Objective Findings Objective Findings:: Pt reports pain at 0-1/2 during all tx with no clunking noted. Pt demo decreased tenderness and tightness in scapula/trapezius. - Charges Timed Code Treatment Minutes: 61 Total Treatment Time: 75 Procedures billed for this date of service:: CP US EX3 Assessment Patient Education: Education of diagnosis, Body/Joint mechanics, Home Exercise Program, Home Safety, Activity Modification, Education of Plan of Care Patient demonstrates compliance with HEP?: Yes Short Term Goals Goal #1: Pt pain to decrease to 0-1/10 with AROM of RUE. Goal to be met by: 06/22/18 (1-2) Progress towards goal: Partially Met Goal #2: Pt to be independent with Home exercise program. Goal to be met by: 06/22/18 (PRE's) Progress towards goal: Partially Met Goal #3: Pt to increase strength of RUE to 4/5. Goal to be met by: 06/22/18 Progress towards goal: Met Goal #4: Pt to increase RUE shoulder flexion to 155 of AROM with stretching. Goal to be met by: 06/22/18 Progress towards goal: Partially Met [employer] Systems Sales Representative Goals Goal #1: Pt pain to decrease to 0/10 with AROM of RUE. Goal to be met by: 08/10/18 Progress towards goal: Progressing Goal #2: Pt to increase RUE shoulder ext. Rotation to 90 deg. Goal to be met by: 08/10/18 Progress towards goal: Progressing Goal #3: Pt to increase strength of RUE to 4+/5 to increase reaching. Goal to be met by: 08/10/18 Progress towards goal: Progressing Goal #4: Pt to increase RUE shoulder AROM to WFL without stretching. Goal to be met by: 08/10/18 Progress towards goal: Progressing Plan Dates of Security Systems Sales Representative Goals: 08/10/18 Expiration date of current Insurance Approval:: 08/10/18 PLAN: Continue per POC to max functional UE AROM and strength to return to PLOF.
--- NOTE | 2018-07-02 08:59 | RS.OTDNOTE ---
Subjective Date of Note: 06/29/18 Visit #: 32 Number of visits approved by Insurance: [phone] Date of Evaluation: 03/14/18 Payer Source: MEDICARE Treatment Diagnosis: M75.111 Incomplete RCT with Rupture of Right Shoulder *Precautions: Uses a cane, HTN. Current Complaints/Gains: Pt agrees he feels more stiff today but states therapy "loosened him up." Rates pain at 0-3 at all times now. States he continues hoping to amount of pain medicine needed and continues with good compliance of HEP/CP. Pain Assessment - Pain Description Pain Description: Tightness, Dull Pain Location: Right UE shoulder Pain Description: Pt reported no pain at the beginning/end of treatment Current Pain Intensity: 0 Worst Pain Intensity: 3 Modalities - Treatment Modality: Ultrasound Parameters/Method Applied: 1.5w/cm2 x 10 mins Treatment Area: trapezius/deltoids Patient Position: Sitting Comments:: Pt positoned in ER with gentle/prolonged stretching performed. - Hot Pack/Cryotherapy Treatment: Cryotherapy Comments:: CP X 10 mins following tx Interventions - Exercise/Activities Exercise/Activities/Manual Therapy: Isometric ex performed at wall 15/2 of shoulder flexion/extension, IR/ER, abduction/adduction. Pt tolerated US to the anterior RUE shoulder while placed in ER/sitting position. MT/trigger point release performed with ed for use of tennis ball at home. Pt in sitting positon only this date for PROM/gentle stretching progressed to 1# yareli bar A/AROM 5- 10/1 and FF codman's ex along with finger ladder in flexion and abduction ranges. 1# hand weight RTC series ex's performed 10/ with instruction for PRE' s at home and during OT tx. Pt also performed PNF techniques and serratus exs in standing along with coordination activities. HOME EXERCISE PROGRAM: Continued ed for isometric ex's and increasing to cane A/ AROM and light resistence RTC series ex's with use of water bottle or light can. - Objective Findings Objective Findings:: Pt reports pain at 0-3 during all tx with no clunking noted. Pt demo decreased tenderness and tightness in scapula/trapezius. Overall general tightness stated 2* rain/weather. - Charges Timed Code Treatment Minutes: 61 Total Treatment Time: 72 Procedures billed for this date of service:: CP US EX2 NMR Assessment Patient Education: Education of diagnosis, Body/Joint mechanics, Home Exercise Program, Home Safety, Activity Modification, Education of Plan of Care Patient demonstrates compliance with HEP?: Yes Short Term Goals Goal #1: Pt pain to decrease to 0-1/10 with AROM of RUE. Goal to be met by: 06/22/18 (3) Progress towards goal: Partially Met Goal #2: Pt to be independent with Home exercise program. Goal to be met by: 06/22/18 (PRE's) Progress towards goal: Partially Met Goal #3: Pt to increase strength of RUE to 4/5. Goal to be met by: 06/22/18 Progress towards goal: Met Goal #4: Pt to increase RUE shoulder flexion to 155 of AROM with stretching. Goal to be met by: 06/22/18 Progress towards goal: Met Separator Inserter Goals Goal #1: Pt pain to decrease to 0/10 with AROM of RUE. Goal to be met by: 08/10/18 Progress towards goal: Progressing Goal #2: Pt to increase RUE shoulder ext. Rotation to 90 deg. Goal to be met by: 08/10/18 Progress towards goal: Progressing Goal #3: Pt to increase strength of RUE to 4+/5 to increase reaching. Goal to be met by: 08/10/18 (4/4+) Progress towards goal: Progressing Goal #4: Pt to increase RUE shoulder AROM to WFL without stretching. Goal to be met by: 08/10/18 Progress towards goal: Progressing Plan Dates of Senior Living Goals: 08/10/18 Expiration date of current Insurance Approval:: 08/10/18 PLAN: Continue per POC to to max functional UE AROM/strength.
--- NOTE | 2018-07-03 10:59 | RS.OTDNOTE ---
Subjective Date of Note: 07/02/18 Visit #: 3 Number of visits approved by Insurance: 6 Date of Evaluation: 03/14/18 Payer Source: MEDICARE Treatment Diagnosis: M75.111 Incomplete RCT with Rupture of Right Shoulder *Precautions: Uses a cane, HTN. Current Complaints/Gains: Pt states he plans to return to the gym. States he returned to his MD and has no restrictions. States they discussed add'l surgery of his elbow but was informed he may loose more mobility. Pain Assessment - Pain Description Pain Description: Tightness, Dull Pain Location: Right UE shoulder Pain Description: Pt reported no pain at the beginning/end of treatment Current Pain Intensity: 1-2 Worst Pain Intensity: 3 Modalities - Treatment Modality: Ultrasound Parameters/Method Applied: 1.5w/cm2 x 12 mins Treatment Area: deltoids and anterior shoulder Patient Position: Sitting - Hot Pack/Cryotherapy Treatment: Cryotherapy Comments:: x 10+ mins Interventions - Exercise/Activities Exercise/Activities/Manual Therapy: Isometric ex performed at wall 15/2 of shoulder flexion/extension, IR/ER, abduction/adduction. Pt tolerated US to the anterior RUE shoulder while placed in ER/sitting position. MT/trigger point release performed with ed for use of tennis ball at home continued. Pt in sitting, standing and supine position this date for PROM/gentle stretching progressed to 3# yareli bar A/AROM 5-10/1 and FF codman's ex along with finger ladder in flexion and abduction ranges. 3# hand weight RTC series ex's performed 10/2 with instruction for PRE's at home and during OT tx. Pt also performed PNF techniques and serratus exs in standing along with coordination activities and B UE jonatan system. HOME EXERCISE PROGRAM: Continued ed for isometric ex's and increasing to cane A/ AROM and light resistence RTC series ex's with use of water bottle or light can. - Objective Findings Objective Findings:: Pt reports pain at 0-2 during all tx with no clunking noted. Pt demo decreased tenderness and tightness in scapula/trapezius this date. states he felt on the edge of popping x 1 and that he can tell where to stop PROM/AROM prior to popping. - Charges Timed Code Treatment Minutes: 62 Total Treatment Time: 74 Procedures billed for this date of service:: CP US EX3 Assessment Patient Education: Education of diagnosis, Body/Joint mechanics, Home Exercise Program, Home Safety, Activity Modification, Education of Plan of Care Patient demonstrates compliance with HEP?: Yes Short Term Goals Goal #1: Pt pain to decrease to 0-1/10 with AROM of RUE. Goal to be met by: 06/22/18 (1-2) Progress towards goal: Partially Met Goal #2: Pt to be independent with Home exercise program. Goal to be met by: 06/22/18 (PRE's) Progress towards goal: Partially Met Goal #3: Pt to increase strength of RUE to 4/5. Goal to be met by: 06/22/18 Progress towards goal: Met Goal #4: Pt to increase RUE shoulder flexion to 155 of AROM with stretching. Goal to be met by: 06/22/18 Progress towards goal: Met Gallery Host Goals Goal #1: Pt pain to decrease to 0/10 with AROM of RUE. Goal to be met by: 08/10/18 Progress towards goal: Progressing Goal #2: Pt to increase RUE shoulder ext. Rotation to 90 deg. Goal to be met by: 08/10/18 Progress towards goal: Progressing Goal #3: Pt to increase strength of RUE to 4+/5 to increase reaching. Goal to be met by: 08/10/18 (4/4+) Progress towards goal: Progressing Goal #4: Pt to increase RUE shoulder AROM to WFL without stretching. Goal to be met by: 08/10/18 Progress towards goal: Progressing Plan Dates of Gallery Host Goals: 08/10/18 Expiration date of current Insurance Approval:: 08/10/18 PLAN: Continue per POC to max functional UE AROM/strength with decreased c/o pain.
--- NOTE | 2018-07-06 10:26 | RS.OTDNOTE ---
Subjective Date of Note: 07/02/18 Visit #: 33 Number of visits approved by Insurance: [phone] Date of Evaluation: 03/14/18 Payer Source: MEDICARE Treatment Diagnosis: M75.111 Incomplete RCT with Rupture of Right Shoulder *Precautions: Uses a cane, HTN. Current Complaints/Gains: Pt states no popping and 0-3 c/o pain. States he feels like he will continue to improve but with everything wrong with him it will take some time. States MD told him up to a year for full recovery. Pain Assessment - Pain Description Pain Description: Tightness, Dull Pain Location: Right UE shoulder Pain Description: Pt reported no pain at the beginning/end of treatment Current Pain Intensity: 0 Worst Pain Intensity: 3 Modalities - Treatment Modality: Ultrasound Parameters/Method Applied: 1.5w/cm2 x 12 mins to anterior/posterior shoulder and deltoids Patient Position: Sitting - Hot Pack/Cryotherapy Treatment: Hot Pack, Cryotherapy Interventions - Exercise/Activities Exercise/Activities/Manual Therapy: Isometric ex performed at wall 15/2 of shoulder flexion/extension, IR/ER, abduction/adduction. Pt tolerated US to the anterior RUE shoulder while placed in ER/sitting position. MT/trigger point release performed with ed for use of tennis ball at home. Pt in sitting positon only this date for PROM/gentle stretching progressed to 3# yareli bar A/AROM 10/ 2 and FF codman's ex along with finger ladder in flexion and abduction ranges. 1# hand weight RTC series ex's performed 10/2 with instruction for PRE's at home and during OT tx. Pt also performed PNF techniques and serratus exs in standing along with coordination activities. HOME EXERCISE PROGRAM: Continued ed for isometric ex's and increasing to cane A/ AROM and light resistence RTC series ex's with use of water bottle or light can. - Objective Findings Objective Findings:: Pt reports and demo good compliance with HEP/applying CP. - Charges Timed Code Treatment Minutes: 57 Total Treatment Time: 71 Procedures billed for this date of service:: CP EX3 US Assessment Patient Education: Education of diagnosis, Body/Joint mechanics, Home Exercise Program, Home Safety, Activity Modification, Education of Plan of Care Patient demonstrates compliance with HEP?: Yes Short Term Goals Goal #1: Pt pain to decrease to 0-1/10 with AROM of RUE. Goal to be met by: 04/12/19 (3) Progress towards goal: Partially Met Goal #2: Pt to be independent with Home exercise program. Goal to be met by: 06/22/18 (PRE's) Progress towards goal: Met Goal #3: Pt to increase strength of RUE to 4/5. Goal to be met by: 06/22/18 Progress towards goal: Met Goal #4: Pt to increase RUE shoulder flexion to 155 of AROM with stretching. Goal to be met by: 06/22/18 Progress towards goal: Met Bus And Sys Integration Senior Manager Goals Goal #1: Pt pain to decrease to 0/10 with AROM of RUE. Goal to be met by: 08/10/18 Progress towards goal: Progressing Goal #2: Pt to increase RUE shoulder ext. Rotation to 90 deg. Goal to be met by: 08/10/18 Progress towards goal: Progressing Goal #3: Pt to increase strength of RUE to 4+/5 to increase reaching. Goal to be met by: 08/10/18 Progress towards goal: Met Goal #4: Pt to increase RUE shoulder AROM to WFL without stretching. Goal to be met by: 08/10/18 Progress towards goal: Partially Met Plan Dates of Bus And Sys Integration Senior Manager Goals: 08/10/18 Expiration date of current Insurance Approval:: 08/10/18 PLAN: Continue tx x 1-2 sessions to max functional UE AROM/strength
--- NOTE | 2018-07-11 10:34 | RS.OTDCSUM ---
Subjective Date of Discharge: 07/04/18 Date of Evaluation: 03/14/18 Number of Visits: 34 Treatment Diagnosis: RUE shoulder RTC repair Current Level of Function: Pt has WFL AROM of the RUE. Pt has tightness at end range of shoulder flexion of RUE. Pt has no pain with RUE shoulder ABD. Current Complaints/Gains: Pt's pain decreased to 0/10. Pt is independent with PRE's. Pt has 4+/5 strength. Pt has WFL AROM with stretching. Pain Assessment - Pain Description Pain Description: Tightness, Dull Pain Location: Right UE shoulder Pain Description: Pt reported no pain at the beginning/end of treatment Current Pain Intensity: 0 Worst Pain Intensity: 3 Functional Outcome Measures UE Functional Index: 6 - G Codes & Severity Modifier G Codes: . Source of G Code score: . Observation - Observation Posture: Normal Handedness: Right Shoulder ROM: Bilaterally WFL's Shoulder Muscle Strength: Bilaterally WFL's - Right Shoulder Strength Right Shoulder Flexion: 4+ Good + Right Shoulder Extension: 4+ Good + Right Shoulder Abduction: 4+ Good + Right Shoulder Adduction: 4+ Good + Right Shoulder External Rotation: 4+ Good + Right Shoulder Internal Rotation: 4+ Good + Elbow ROM: Bilaterally WFL's Elbow Muscle Strength: Bilaterally WFL's - Left Elbow Strength Left Elbow Extension: 4+ Good + Left Elbow Flexion: 4+ Good + Left Forearm Pronation: 4+ Good + Left Forearm Supination: 4+ Good + - Right Elbow Strength Right Elbow Extension: 4+ Good + Right Elbow Flexion: 4+ Good + Right Forearm Pronation: 4+ Good + Right Forearm Supination: 4+ Good + Sensation Right Upper Extremity: Intact/Normal Left Upper Extremity: Intact/Normal Sensation Description: Within Normal Limits Interventions - Exercise/Activities Exercise/Activities/Manual Therapy: Isometric ex performed at wall 15/2 of shoulder flexion/extension, IR/ER, abduction/adduction. Pt tolerated US to the anterior RUE shoulder while placed in ER/sitting position. MT/trigger point release performed with ed for use of tennis ball at home. Pt in sitting positon only this date for PROM/gentle stretching progressed to 1# yareli bar A/AROM 5- 10/ and FF codman's ex along with finger ladder in flexion and abduction ranges. 1# hand weight RTC series ex's performed 12/12 with instruction for PRE' s at home and during OT tx. Pt also performed PNF techniques and serratus exs in standing along with coordination activities. HOME EXERCISE PROGRAM: Continued ed for isometric ex's and increasing to cane A/ AROM and light resistence RTC series ex's with use of water bottle or light can. - Charges Timed Code Treatment Minutes: . Total Treatment Time: . Procedures billed for this date of service:: . Assessment Assessment: Pt is being discharged this date. Pt has WFL AROM with stretching. Pt has 4+/5 strength, and ABD is 120 deg., and 0/10. Rehab Potential: Good Problems/Comments: none Short Term Goals Goal #1: Pt pain to decrease to 0-1/10 with AROM of RUE. Goal to be met by: 06/22/18 (3) Progress towards goal: Partially Met Goal #2: Pt to be independent with Home exercise program. Goal to be met by: 06/22/18 (PRE's) Progress towards goal: Partially Met Goal #3: Pt to increase strength of RUE to 4/5. Goal to be met by: 06/22/18 Progress towards goal: Met Goal #4: Pt to increase RUE shoulder flexion to 155 of AROM with stretching. Goal to be met by: 06/22/18 Progress towards goal: Met Chcf Goals Goal #1: Pt pain to decrease to 0/10 with AROM of RUE. Goal to be met by: 08/10/18 Progress towards goal: Progressing Goal #2: Pt to increase RUE shoulder ext. Rotation to 90 deg. Goal to be met by: 08/10/18 Progress towards goal: Progressing Goal #3: Pt to increase strength of RUE to 4+/5 to increase reaching. Goal to be met by: 08/10/18 (4/4+) Progress towards goal: Progressing Goal #4: Pt to increase RUE shoulder AROM to WFL without stretching. Goal to be met by: 08/10/18 Progress towards goal: Progressing Plan Reason for Discharge:: No Further Skilled Therapy Indicated Comments: Many goals met. Pt wants to discharge himself at this point.
== END 2018-07-10 23:59 ==
PROVIDERS: ATTEND Orthopaedic Surgery
DX: M75.111 Incomplete rotator cuff tear or rupture of right shoulder, not specified as traumatic (principal)